=== PATIENT | male | born 1960 | race Caucasian/White ===

== ENCOUNTER → 2017-05-11 11:52 | Outpatient (CLI) | payer MEDICARE, SELFPAY ==
[2017-05-11 11:34] VITALS: BP 136/84; BMI 25.7
--- NOTE | 2017-05-11 11:56 | RAD_ITS ---
STUDY: X-RAY - LEFT FOOT CLINICAL: Male, 56 years old. Heavy board fell on top of foot 3 days ago. TECHNIQUE: 3 view(s) of the foot. COMPARISON: None. FINDINGS: There is a plantar calcaneal spur. Normal talus and tarsal bones. Normal visualized subtalar, talonavicular, calcaneocuboid, tarsal and tarsometatarsal articulations. Normal metatarsi. There is degenerative arthrosis of the metatarsophalangeal joint of the hallux . There is a bipartite tibial sesamoid. Normal interphalangeal joint of the great toe. Normal phalanges of the great toe. Normal second through fifth metatarsophalangeal joints. Normal interphalangeal joints and phalanges of the lesser toes. The soft tissue structures are unremarkable. RAD/Foot min 3 Views IMPRESSION: Arthrosis of the foot. There is no acute fracture or dislocation. Electronically Signed: Nathen Dior DO at 18:19 EST Tel [phone], Service support ,
== END ==
PROVIDERS: Family Provider Family Medicine; PCP Family Medicine; Visit Provider Physician Assistant
DX: S90.32XA Contusion of left foot, initial encounter (principal); W22.8XXA Striking against or struck by other objects, initial encounter; M19.072 Primary osteoarthritis, left ankle and foot
CPT/HCPCS: 73630

== ENCOUNTER → 2020-05-28 16:11 | Outpatient (CLI) | payer MEDICARE, SELFPAY ==
[2017-05-11 11:34] VITALS: BMI 25.7
--- NOTE | 2020-05-28 16:18 | US_ITS ---
STUDY: SCROTUM ULTRASOUND REASON FOR EXAM: Male, 59 years old. Left testicular swelling. TECHNIQUE: Ultrasound evaluation of the scrotum was performed with color Doppler and static lockwood-scale imaging. COMPARISON: None. FINDINGS: RIGHT TESTICLE INTRATESTICULAR: There is a normal size of the right testicle. The right testicle measures 3.8 x 3.1 x 2.4 cm. There is a homogenous echotexture. There is normal arterial and normal venous vascularity. There is no demonstrated right testicular mass or cyst. EXTRATESTICULAR: The epididymis is normal in size. The epididymis head measures 1.2 x 1.1 x 1.2 cm. There is normal vascularity of the epididymis. There is no demonstrated epididymal cystic structure. There is a small hydrocele. There is no demonstrated varicocele. There is no demonstrated extratesticular mass or cyst. LEFT TESTICLE INTRATESTICULAR: There is a normal size of the left testicle. The left testicle measures 3.6 x 2.7 x 2.4 cm. There is a homogenous echotexture. There is normal arterial and normal venous vascularity. There is no demonstrated left testicular mass or cyst. EXTRATESTICULAR: The epididymis is normal in size. The epididymis head measures 0.9 x 1.2 x 1.0 cm. There is normal vascularity of the epididymis. There is no demonstrated epididymal cystic structure. There is a large hydrocele. There is no demonstrated varicocele. There is no demonstrated extratesticular mass or cyst. US/Testicular with Arterial Flow IMPRESSION: Bilateral hydrocele, left larger compared to the right. Otherwise unremarkable testicular ultrasound. Electronically Signed: Yessenia Roldan MD at 1:48 EST , Service support ,
== END ==
PROVIDERS: PCP Family Medicine; Referring Provider Family Medicine; Visit Provider Family Medicine
DX: N50.89 Other specified disorders of the male genital organs (principal)
CPT/HCPCS: 76870; 93976

== ENCOUNTER → 2021-10-25 | Outpatient (CLI) | payer MEDICARE, SELFPAY ==
[2021-10-25 10:38] LABS: ALB/GLOB Ratio 0.9 RATIO (0.9-2.4); AST(SGOT) 23 U/L (15-37); Alanine Aminotransfer ALT/SGPT 27 U/L (16-61); Albumin, Serum 3.7 g/dL (3.2-5.0); Alkaline Phosphatase 97 U/L (45-117); Anion Gap 8 (5-15); BUN 18 mg/dL (7-18); BUN/Creat Ratio 11.6 RATIO (10-20); Calcium,Total 9.4 mg/dL (8.5-10.1); Chloride 107 mmol/L (98-107); Creatinine, Serum 1.55 mg/dL (0.70-1.30); EST Glomerular Filtration Rate 49 mL/min (>60); Est Glom Filt Rate - Afr Amer 59 mL/min (>60); Globulin 3.9 g/dL (2.2-4.2); Glucose 102 mg/dL (74-106); Potassium 4.8 mmol/L (3.5-5.1); Protein, Total 7.6 g/dL (6.4-8.2); Sodium Level 140 mmol/L (136-145)
== END | disposition home or self-care (01) ==
PROVIDERS: PCP Family Medicine; Referring Provider Family Medicine; Visit Provider Family Medicine
DX: Z52.4 Kidney donor (principal); E78.5 Hyperlipidemia, unspecified
CPT/HCPCS: 36415; 80053

== ENCOUNTER → 2021-11-09 | Outpatient (CLI) | payer MEDICARE, SELFPAY ==
--- NOTE | 2021-11-09 17:14 | CT_ITS ---
STUDY: LOW DOSE CT LUNG CANCER SCREENING REASON FOR EXAM: Male, 61 years old. Lung cancer screening -- and gt;30 pk yr hx;former smoker;asymptomatic RADIATION DOSAGE (If Supplied By Facility): CTDIvol = ( 3.02 ) mGy, DLP = ( 103.45 ) mGycm TECHNIQUE: No contrast was administered. Low dose technique was utilized (average mAS-38 and kVp 120). 1.25 mm axial source images with a slice interval of 1.25-mm were reconstructed in lung windows. 2.5 mm axial source images with a slice interval of 2.5-mm were reconstructed in lung windows. 5.0 mm axial source images with a slice interval of 5.0-mm were reconstructed in soft tissue windows. COMPARISON: None. NODULES: There is a 3.9 mm noncalcified nodule in the right temporal as seen on axial image number 1:30 in the coronal image #126. Emphysema: Hyperinflation. Endobronchial lesion: None Aorta: Mild atherosclerotic calcification of the aortic arch. CORONARY ARTERIES: Coronary artery calcification is seen. Heart: Unremarkable Pulmonary artery: Unremarkable Mediastinal nodes: Small mediastinal lymph nodes. Other chest and abdominal findings: CT/Low Dose CT Lung Screening IMPRESSION: Lung-RADS category 2 - Continue annual screening with LDCT in 12 months. IMPORTANT NOTES FOR USE: ACR Lung-RADS Version 1.1 Assessment Categories Release Date: 2018 Category: Coded 0-4 bases on nodule(s) with highest degree of suspicion. Negative screen is defined as categories 1 and 2; a positive screen is defined as categories 3 and 4. Category 3 and 4A nodules that are unchanged on interval CT should be coded as category 2, and individuals returned to screening in 12 months. Category 4X: Category 3 or 4 nodules with additional imaging findings that increase the suspicion of lung cancer, such as spiculation, GGN that doubles in size in 1 year, enlarged lymph notes, etc. Category Modifiers: S (significant finding unrelated to lung cancer) Electronically Signed: Jeyson Santiago MD at 9:14 EDT ,
== END | disposition home or self-care (01) ==
LOC: CT 17:05
PROVIDERS: PCP Family Medicine; Referring Provider Nurse Practitioner Family; Visit Provider Nurse Practitioner Family
DX: Z87.891 Personal history of nicotine dependence (principal); Z12.2 Encounter for screening for malignant neoplasm of respiratory organs
CPT/HCPCS: 71271

== ENCOUNTER → 2022-11-02 | Outpatient (CLI) | payer MEDICARE, SELFPAY ==
[2022-11-02 12:24] LABS: Absolute Neutrophil Count 5.6 X10^3/uL (2.0-7.7); Basophil# 0.05 X10^3/uL; Basophil% 0.7 % (0-1); Eosinophils% 2.7 % (0-5); Hematocrit 48.4 % (40-54); Hemoglobin 15.9 g/dL (13.0-16.5); Lymphocyte % 14.8 % (19-41); Mean Corp Hgb Conc 32.9 g/dL (32-36); Mean Corpuscular Hgb 30.9 pg (27.0-32.0); Mean Platelet Vol. 12.1 fl (6.2-12.0); Monocyte# 0.51 X10^3/uL; Monocyte% 6.8 % (0-10); NRBC Flagged by Analyzer 0 % (0-5); Neutrophil # 5.57 X10^3/uL (2.7-7.7); Neutrophil % 74.7 % (47-70); Platelet Count 180 K/mm3 (150-450); RBC Distribution Width CV 12.6 % (11.6-14.6); RBC Distribution Width SD 43.8 fl (35.1-43.9); Red Blood Count 5.15 M/mm3 (4.6-6.2); White Blood Count 7.5 K/mm3 (4.4-11.0)
[2022-11-02 13:23] LABS: AST(SGOT) 22 U/L (15-37); Alanine Aminotransfer ALT/SGPT 26 U/L (16-61); Albumin, Serum 3.7 g/dL (3.2-5.0); Alkaline Phosphatase 85 U/L (45-117); Anion Gap 5 (5-15); BUN 17 mg/dL (7-18); BUN/Creat Ratio 12.8 RATIO (10-20); Calcium,Total 9.1 mg/dL (8.5-10.1); Chloride 108 mmol/L (98-107); Creatinine, Serum 1.33 mg/dL (0.70-1.30); EST Glomerular Filtration Rate 58 mL/min (>60); Est Glom Filt Rate - Afr Amer 70 mL/min (>60); Globulin 3.7 g/dL (2.2-4.2); Glucose 124 mg/dL (74-106); Potassium 4.6 mmol/L (3.5-5.1); Protein, Total 7.4 g/dL (6.4-8.2); Sodium Level 139 mmol/L (136-145)
== END | disposition home or self-care (01) ==
PROVIDERS: PCP Nurse Practitioner Family; Referring Provider Nurse Practitioner Family; Visit Provider Nurse Practitioner Family
DX: Z00.01 Encounter for general adult medical examination with abnormal findings (principal); K57.92 Diverticulitis of intestine, part unspecified, without perforation or abscess without bleeding; Z52.4 Kidney donor
CPT/HCPCS: 36415; 80053; 85025

== ENCOUNTER → 2022-11-11 | Outpatient (CLI) | payer MEDICARE, SELFPAY ==
--- NOTE | 2022-11-11 06:56 | CT_ITS ---
EXAM: CT CHEST, LUNG CANCER SCREENING WITHOUT INTRAVENOUS CONTRAST CLINICAL INDICATION: PERSONAL HX OF NICOTINE DEPENDENCE TECHNIQUE: Helically acquired images were obtained of the chest without intravenous contrast using low dose (LDCT) lung cancer screening protocol. This CT exam was performed using one or more of the following dose reduction techniques: automated exposure control, adjustment of the mA and/or kV according to patient size, and/or use of iterative reconstruction technique. COMPARISON: No relevant prior studies available. FINDINGS: LUNGS AND PLEURAL SPACES: Stable partially calcified 4 mm nodule within the anterior segment of the right upper lobe. Stable pleural-based 3 mm nodule adjacent to the minor fissure. No evidence of a lung mass or suspicious pulmonary nodule. No pneumothorax. HEART: Normal. No pericardial effusion. Normal heart size. Moderate coronary artery calcification. MEDIASTINUM: Normal. No mediastinal or hilar adenopathy. Esophagus is unremarkable. No hiatal hernia. THYROID: Normal. No thyroid nodules or calcification. BONES/JOINTS: No suspicious lytic or blastic abnormality. VASCULATURE: See above. LYMPH NODES: Normal. No enlarged lymph nodes. CT/Low Dose CT Lung Screening IMPRESSION: No evidence of a lung mass or suspicious pulmonary nodule. Lung-RADS score: 1 - Negative. Recommend continued annual screening with a low-dose CT (LDCT) in 12 months. Electronically Signed: Darius Cannon MD at 7:46 EDT ,
== END | disposition home or self-care (01) ==
PROVIDERS: PCP Nurse Practitioner Family; Referring Provider Nurse Practitioner Family; Visit Provider Nurse Practitioner Family
DX: Z12.2 Encounter for screening for malignant neoplasm of respiratory organs (principal); Z87.891 Personal history of nicotine dependence
CPT/HCPCS: 71271

== ENCOUNTER → 2024-01-09 | Outpatient (CLI) | payer MEDICARE, SELFPAY ==
--- NOTE | 2024-01-09 12:30 | CT_ITS ---
STUDY: LOW DOSE CT LUNG CANCER SCREENING REASON FOR EXAM: Male, 63 years old. LUNG CANCER SCREENING and gt;20 PK HX;FORMER SMOKER;ASYMPTOMATIC RADIATION DOSAGE (If Supplied By Facility): CTDIvol = ( 3.02 ) mGy, DLP = ( 97.04 ) mGycm TECHNIQUE: No contrast was administered. Low dose technique was utilized (average mAS-38 and kVp 120). 1.25 mm axial source images with a slice interval of 1.25-mm were reconstructed in lung windows. 2.5 mm axial source images with a slice interval of 2.5-mm were reconstructed in lung windows. 5.0 mm axial source images with a slice interval of 5.0-mm were reconstructed in soft tissue windows. COMPARISON: Comparison is made with prior study November 11, 2022. NODULES: Stable 4.2 mm partially calcified nodule in the anterior medial aspect of the right upper lobe as seen on axial image #107. Stable pleural-based 3 mm nodule adjacent to the minor fissure. Emphysema: Mild biapical scarring more prominent on the right side. Endobronchial lesion: None Aorta: Mild degree of atherosclerotic calcification of the aortic arch. CORONARY ARTERIES: Coronary artery calcification is seen. Heart: Unremarkable Pulmonary artery: Remarkable Mediastinal nodes: Unremarkable Other chest and abdominal findings: CT/Low Dose CT Lung Screening IMPRESSION: Lung-RADS category 2 - Continue annual screening with LDCT in 12 months. IMPORTANT NOTES FOR USE: ACR Lung-RADS Version 1.1 Assessment Categories Release Date: 2018 Category: Coded 0-4 bases on nodule(s) with highest degree of suspicion. Negative screen is defined as categories 1 and 2; a positive screen is defined as categories 3 and 4. Category 3 and 4A nodules that are unchanged on interval CT should be coded as category 2, and individuals returned to screening in 12 months. Category 4X: Category 3 or 4 nodules with additional imaging findings that increase the suspicion of lung cancer, such as spiculation, GGN that doubles in size in 1 year, enlarged lymph notes, etc. Category Modifiers: S (significant finding unrelated to lung cancer) Electronically Signed: Jeyson Santiago MD at 13:15 EDT ,
[2024-01-09 13:34] LABS: Absolute Lymphocyte Count 1.41 X10^3/uL (0.83-4.51); Absolute Neutrophil Count 4.4 X10^3/uL (2.0-7.7); Basophil# 0.11 X10^3/uL; Basophil% 1.6 % (0-1); Eosinophil# 0.32 X10^3/uL; Eosinophils% 4.7 % (0-5); Hematocrit 50.6 % (40-54); Hemoglobin 16.4 g/dL (13.0-16.5); Lymphocyte # 1.41 X10^3/ul (0.83-4.51); Lymphocyte % 20.8 % (19-41); Mean Corp Hgb Conc 32.4 g/dL (32-36); Mean Corpuscular Hgb 29.9 pg (27.0-32.0); Mean Corpuscular Volume 92.3 fL (80-94); Mean Platelet Vol. 11.9 fl (6.2-12.0); Monocyte# 0.56 X10^3/uL; Monocyte% 8.3 % (0-10); NRBC Flagged by Analyzer 0 % (0-5); Neutrophil # 4.35 X10^3/uL (2.7-7.7); Neutrophil % 64.3 % (47-70); Platelet Count 173 K/mm3 (150-450); Red Blood Count 5.48 M/mm3 (4.6-6.2); White Blood Count 6.8 K/mm3 (4.4-11.0)
[2024-01-09 14:02] LABS: AST(SGOT) 23 U/L (15-37); Alanine Aminotransfer ALT/SGPT 26 U/L (16-61); Albumin, Serum 3.7 g/dL (3.2-5.0); Alkaline Phosphatase 92 U/L (45-117); Anion Gap 6 (5-15); BUN 12 mg/dL (7-18); BUN/Creat Ratio 8.6 RATIO (10-20); Calcium,Total 9.3 mg/dL (8.5-10.1); Chloride 109 mmol/L (98-107); Cholesterol 232 mg/dL (200); Creatinine, Serum 1.39 mg/dL (0.70-1.30); EST Glomerular Filtration Rate 55 mL/min (>60); Est Glom Filt Rate - Afr Amer 67 mL/min (>60); Globulin 3.6 g/dL (2.2-4.2); Glucose 98 mg/dL (74-106); High Density Lipoprotein 34 mg/dL; PSA,Total - Annual Screen 0.78 ng/mL (0.00-4.00); Potassium 4.6 mmol/L (3.5-5.1); Protein, Total 7.3 g/dL (6.4-8.2); Sodium Level 140 mmol/L (136-145); Triglycerides 144 mg/dL; Very Low Density Lipoprotein 29 mg/dL (5-40)
== END | disposition home or self-care (01) ==
PROVIDERS: PCP Nurse Practitioner Family; Referring Provider Nurse Practitioner Family; Visit Provider Nurse Practitioner Family
DX: Z12.2 Encounter for screening for malignant neoplasm of respiratory organs (principal); Z12.5 Encounter for screening for malignant neoplasm of prostate; I10 Essential (primary) hypertension; E78.5 Hyperlipidemia, unspecified; Z87.891 Personal history of nicotine dependence
CPT/HCPCS: 36415; 71271; 80053; 80061; 84153; 85025; G0103

== ENCOUNTER → 2025-03-18 | Outpatient (CLI) | payer MEDICARE, SELFPAY ==
--- NOTE | 2025-03-18 12:42 | CT_ITS ---
PROCEDURE: LOW DOSE CT LUNG SCREENING 03/18/2025 REASON FOR EXAM: LUNG CANCER SCREENING Routine screening, 1 pack per day smoker times 40 years TECHNIQUE: Procedure Code: [id number] Modality: CT Procedure: LOW DOSE CT LUNG SCREENING Coronal and Sagittal reconstruction series were provided. One or more dose reduction techniques were used (e.g., Automated exposure control, adjustment of the mA and/or kV according to patient size, use of iterative reconstruction technique). REFERENCE LINK: [employer] Lung-RADS RADIATION DOSE SUMMARY: CTDlvol: 3.02 mGy DLP: 107.97 mGycm COMPARISON: 01/09/2024 FINDINGS: Lung windows show lungs to be normally expanded. Chronic interstitial changes noted in both lung green with nonspecific pleural thickening. Stable calcified granulomata. No organized infiltrate or effusion. No suspicious noncalcified mass or nodule. Limited soft tissue windows show a normal-appearing thyroid gland. No suspicious axillary mediastinal or perihilar adenopathy. The thoracic aorta tapers normally. There are calcified coronary vessels. Limited cuts of the upper abdomen do not show a suspicious abnormality. Bony structures show degenerative change CT/Low Dose CT Lung Screening IMPRESSION: No acute pulmonary process, no suspicious noncalcified mass or nodule. No inte rval change Coronary artery calcification (CAC) is is present Lung-RADS Category: 1 NEGATIVE. RECOMMEND 12-MONTH SCREENING LDCT. Other Significant Findings: Reading Location: [id number]
== END | disposition home or self-care (01) ==
LOC: CT 12:42
PROVIDERS: PCP Nurse Practitioner Family; Referring Provider Nurse Practitioner Family; Visit Provider Nurse Practitioner Family
DX: Z12.2 Encounter for screening for malignant neoplasm of respiratory organs (principal); Z87.891 Personal history of nicotine dependence
CPT/HCPCS: 71271

== ENCOUNTER 2025-03-26 16:59 | Emergency (ER) | payer MEDICARE, SELFPAY ==
[2025-03-26 16:59] VITALS: BP 144/104; PULSE 85; RESP 16; TEMP 37.2; O2SAT 99; BMI 26.1
[2025-03-26 17:03] VITALS: BP 150/90; PULSE 82; RESP 18; TEMP 37.7; O2SAT 98
--- OUTSIDE RECORDS SUMMARY | 2025-03-26 17:38 | XMS RPT_ITS | CCD ---
Author Organization [place] [facility] Care Team Providers Care Youth Probation Officer Name Role Phone JOSH ZAVALA Unavailable Unavailable EVER ANGEL Unavailable Unavailable JOSH ZAVALA Unavailable Unavailable JOSH ZAVALA Unavailable Unavailable ZELALEM PAZ Unavailable Unavailable Chloé Cope Unavailable Unavailable Unknown, Referring Provider Unavailable Unav ailable Required, No Pcp Unavailable Unavailable Krys Khalil Unavailable UNKNOWN, PCP Primary Care Unavailable Krys Khalil Attending Lucero Juarez NP Referring Unavailable Kim ELL TUTOR, Lucero Attending Unavailable Chaparrita Tanner Primary Care Unavailable Chaparrita Tanner Primary Care Unavailable Kim ELL TUTOR, Lucero Attending Unavailable Chaparrita Tanner Referring Unavailable Allergies Allergy Classification Reported Allergen(s) Allergy Type Date of Onset Reaction(s) Facility (1 source) codeine; Translations: [CODEINE] Drug Allergy 03-19-2011 [facility] Repository (1 source) Influenza Virus Vaccines Drug allergy (disorder) 01-28-2025 [facility] Repository (1 source) Tsffdur-Ytg-Ief Reductase Inhibitor Drug allergy (disorder) 01-28-2025 [facility] Repository Medications Current Medications Medication Drug Class(es) Dates Sig (Normalized) Sig (Original) acetaminophen 325 mg oral tablet (1 source) Start: 06-07-2017 take 2 tablets by mouth every four hours as needed acetaminophen 325 mg oral tablet ; 2 tab(s) orally every 4 hours, As Needed for mild pain (1-3) Quantity: 0 Refills: 0 Ordered: 07-Jun-2017 Rosio Carolina Start: 07-Jun-2017 Generic Substitution Allowed ondansetron 4 mg oral tablet (1 source) Serotonin-3 Receptor Antagonist Start: 05-19-2022 take 1 tablet by mouth every six hours ondansetron 4 mg oral tablet ; 1 tab(s) orally every 6 hours Quantity: 30 Refills: 0 Ordered: 19-May-2022 Daniele Becker Start: 19-May-2022 Generic Substitution Allowed Completed/Discontinued Medications Medication Drug Class(es) Dates Sig (Normalized) Sig (Original) docusate sodium 100 mg oral capsule (1 source) Start: 06-08-2017 End: 06-14-2017 take 8 capsules by mouth twice daily docusate sodium 100 mg oral capsule ; 1 cap(s) orally 2 times a day while taking narcotics (dilaudid)Hold for loose stool Quantity: 14 Refills: 0 Ordered: 08-Jun-2017 Beltran Lazo Start: 08-Jun-2017 End: 14-Jun-2017 Generic Substitution Allowed HYDROmorphone hydrochloride 2 mg oral tablet (1 source) Opioid Agonist Start: 06-08-2017 End: 06-14-2017 take 1 tablet by mouth every four hours as needed HYDROmorphone 2 mg oral tablet ; 1 tab(s) orally every 4 hours, As needed, Pain - Mod (4-6) for post-operative pain (G89.18) Quantity: 42 Refills: 0 Ordered: 08-Jun-2017 Beltran Lazo Start: 08-Jun-2017 End: 14-Jun-2017 Generic Substitution Allowed Scopolamine (1 source) Anticholinergic Start: 06-08-2017 End: 06-10-2017 Scopolamine 1.5 mg TransDermal ; 1 patch transdermal every 72 hours Quantity: 3 Refills: 0 Ordered: 08-Jun-2017 Beltran Lazo Start: 08-Jun-2017 End: 10-Jun-2017 Dispense As Written sennosides, jail 8.6 mg oral tablet (1 source) Start: 06-08-2017 End: 06-14-2017 take 8 tablets by mouth twice daily as needed for constipation senna 8.6 mg oral tablet ; 1 tab(s) orally 2 times a day, As needed, Constipation while taking narcotics (dilaudid)Hold for loose stool Quantity: 14 Refills: 0 Ordered: 08-Jun-2017 Beltran Lazo Start: 08-Jun-2017 End: 14-Jun-2017 Generic Substitution Allowed Problems Active Problems Problem Classification Problem Date Documented Date Episodic/Chronic Conditions associated with dizziness or vertigo (1 source) Dizziness and giddiness; Translations: [Dizziness and giddiness] Onset: 3 Episodic Fever of unknown origin (4 sources) Fever; Translations: [Fever, unspecified] Onset: 3 05-19-2022 Episodic Nausea and vomiting (2 sources) Nausea with vomiting, unspecified; Translations: [Nausea with vomiting, unspecified] Onset: 3 Episodic Other injuries and conditions due to external causes (1 source) Open wound; Translations: [Wound drainage] Episodic Residual codes; unclassified (1 source) Kidney donor; Translations: [Donor of kidney for transplant] Episodic Residual codes; unclassified (2 sources) Pain, unspecified; Translations: [Pain, unspecified] Onset: 3 Episodic Residual codes; unclassified (1 source) Acquired absence of kidney; Translations: [Acquired absence of kidney] Onset: 3 Episodic Screening and history of mental health and substance abuse codes (3 sources) Tobacco use and exposure - finding; Translations: [Personal history of nicotine dependence] Onset: 5 11-09-2021 Episodic Superficial injury; contusion (3 sources) Contusion of foot; Translations: [Contusion of left foot, initial encounter] 05-11-2017 Episodic Unclassified (4 sources) Encounter for screening for malignant neoplasm of colon; Translations: [Interferon gamma assay positive] Onset: 7 11-09-2021 Episodic Unclassified (3 sources) Closed fracture dislocation of single metatarsophalangeal joint; Translations: [Closed fracture dislocation of single metatarsophalangeal joint of left foot with rou] 05-11-2017 Viral infection (1 source) Disease caused by 2019-nCoV; Translations: [Other specified viral infection] 05-19-2022 Episodic Viral infection (4 sources) Disease caused by 2019-nCoV; Translations: [COVID-19] Onset: 3 05-18-2022 Comment on above: COVID Past or Other Problems Problem Classification Problem Date Documented Da te Episodic/Chronic Other and unspecified benign neoplasm (1 source) Personal history of colonic polyps; Translations: [Personal history of colonic polyps] Onset: 12-20-2016 Episodic NEGATED: Highlighted row has not occurred!Residual codes; unclassified (2 sources) Disease Episodic Results Test Name Value Interpretation Reference Range Facility Absolute lymphocyte countOrd ered By: Chaparrita Tanner on 11-02-2022 Lymphocytes Auto (Unsp spec) [#/Vol] 1.10 10*3/uL 0.83-4.51 [facility] Basophil percentageOrdered B y: Chaparrita Tnaner on 11-02-2022 Basophils/100 WBC (Bld) 0.7 % 0-1 [facility] Bilirubin [Mass/Vol] 0.40 mg/dL 0.20-1.00 [facility] Comment on above: For patients on eltr ombopag therapy, use of Dimension [place] TBIL is not recommended. Chloride [Moles/Vol] 108 mmol/L 98-107 [facility] Eosinophils/100 WBC (Bld) 2.7 % 0-5 [facility] Glucose [Mass/Vol] 124 mg/dL 74-106 [facility] Comment on above: Fasting Glucose resu lt from 100 to 125 mg/dL suggests IMPAIRED HOMEOSTASIS per A.D.A. criteria. Neutrophils (Bld) [#/Vol] 5.6 10*3/uL 2.0-7.7 [facility] Neutrophils/100 WBC (Bld) 74.7 % 47-70 [facility] Potassium [Moles/Vol] 4.6 mmol/L 3.5-5.1 [facility] Protein [Mass/Vol] 7.4 g/dL 6.4-8.2 [facility] Sodium [Moles/Vol] 139 mmol/L 136-145 [facility] WBC (Bld) [#/Vol] 7.5 10*3/uL 4.4-11.0 [facility] Blood erythrocytes count (nu mber/volume)Ordered By: Chaparrita Tanner on 11-02-2022 RBC (Bld) [#/Vol] 5.15 10*6/uL 4.6-6.2 [facility] Blood hemoglobin measurement (mass/volume)Ordered By: Chaparrita Tanner on 11-02-2022 Hemoglobin (Bld) [Mass/Vol] 15.9 g/dL 13.0-16.5 [facility] Blood lymphocytes/100 leukoc ytesOrdered By: Chaparritadeysi Tanner on 11-02-2022 Lymphocytes/100 WBC (Bld) 14.8 % 19-41 [facility] Blood monocytes/100 leukocyt esOrdered By: Chaparritadeysi Tanner on 11-02-2022 Monocytes/100 WBC (Bld) 6.8 % 0-10 [facility] Blood platelet mean volumeOr dered By: Chaparrita Tanner on 11-02-2022 Platelet mean volume (Bld) [Entitic vol] 12.1 fL 6.2-12.0 [facility] Determination of erythrocyte mean corpuscular volume (MCV)Ordered By: Chaparritadeysi Tanner on 11-02-2022 MCV (RBC) [Entitic vol] 94.0 fL 80-94 [facility] Hematocrit Auto (Bld) [Volum e fraction]Ordered By: Chaparritadeysi Tanner on 11-02-2022 Hematocrit (Bld) [Volume fraction] 48.4 % 40-54 [facility] Laboratory - Chemistry and C hemistry - challengeOrdered By: Ocala Ciro on 11-02-2022 ALP [Catalytic activity/Vol] 85 U/L 45-117 [facility] ALT [Catalytic activity/Vol] 26 U/L 16-61 [facility] CO2 [Moles/Vol] 26.0 mmol/L 21.0-32.0 [facility] Globulin (S) [Mass/Vol] 3.7 g/dL 2.2-4.2 [facility] Urea nitrogen/Creatinine [Mass ratio] 12.8 mg/mg 10-20 [facility] Laboratory - Hematology and Cell countsOrdered By: Ocala Ciro on 11-02-2022 Erythrocyte distribution width (RBC) [Entitic vol] 43.8 fL 35.1-43.9 [facility] Erythrocyte distribution width (RBC) [Ratio] 12.6 % 11.6-14.6 [facility] Immature granulocytes/100 WBC (Bld) 0.300 % 0.0-0.9 [facility] Comment on above: IG% - Immature Granu locytes (promyelocytes, myelocytes and metamyelocytes) > 1% indicates that a LEFT SHIFT is Present. MCH (RBC) [Entitic mass] 30.9 pg 27.0-32.0 [facility] Nucleated RBC/100 WBC (Bld) [Ratio] 0 % 0-5 [facility] MCHC Auto (RBC) [Mass/Vol]Or dered By: Chaparrita Tanner on 11-02-2022 MCHC (RBC) [Mass/Vol] 32.9 g/dL 32-36 [facility] No Panel InformationOrdered By: Chaparrita Tanner on 11-02-2022 Estimated GFR (MDRD) Amer 70 mL/min >60 [facility] Comment on above: GFR Calc Estimated GFR (MDRD) Non-Af Amer 58 mL/min >60 [facility] Comment on above: Non- GFR Calc Platelets bldOrdered By: Juliet Tanner on 11-02-2022 Platelets (Bld) [#/Vol] 180 10*3/uL 150-450 [facility] Serum or plasma albumin kevin urement (mass/volume)Ordered By: Chaparrita Tanner on 11-02-2022 Albumin [Mass/Vol] 3.7 g/dL 3.2-5.0 [facility] Serum or plasma albumin/glob ulin mass ratioOrdered By: Chaparrita Tanner on 11-02-2022 Albumin/Globulin [Mass ratio] 1.0 {ratio} 0.9-2.4 [facility] Serum or plasma calcium kevin urement (mass/volume)Ordered By: Chaparrita Tanner on 11-02-2022 Calcium [Mass/Vol] 9.1 mg/dL 8.5-10.1 [facility] Serum or plasma creatinine m easurement (mass/volume)Ordered By: Chaparrita Tanner on 11-02-2022 Creatinine [Mass/Vol] 1.33 mg/dL 0.70-1.30 [facility] Comment on above: The validity of the calculated GFR & GFRAA in patients over 70 years has not been determined. Clinical correlation is essential. Serum or plasma urea nitroge n measurement (mass/volume)Ordered By: Chaparrita Tanner on 11-02-2022 Urea nitrogen [Mass/Vol] 17 mg/dL 7-18 [facility] Thin prep Papanicolaou smear with manual screeningOrdered By: Chaparrita Tanner on 11-02-2022 Thin prep Papanicolaou smear with manual screening 22 U/L 15-37 [facility] Thin prep Papanicolaou smear with manual screening 5 5-15 [facility] INFLUENZA A/B, COVID 2019 PC R,SYMPTOMATICon 05-19-2022 INFLUENZA A, PCR Canceled Normal [facility] Comment on above: Order Comment: TEST INFLUENZA A/B, COVID 2019 PCR,SYMPTOMATIC WAS CANCELLED, 05/19/2022 01:42 Result Comment: Resp iratory virus testing is performed routinely by PCR for Influenza A/B and RSV. Not Detected results do not preclude Influenza A/B or RSV infections since the adequacy of sample collection or low viral burden may impact the clinical sensitivity of this test method. Performed By: #### C OINP #### [facility] [address] [place] [address] INFLUENZA B, PCR Canceled Normal [facility] Comment on above: Order Comment: TEST INFLUENZA A/B, COVID 2019 PCR,SYMPTOMATIC WAS CANCELLED, 05/19/2022 01:42 Result Comment: Resp iratory virus testing is performed routinely by PCR for Influenza A/B and RSV. Not Detected results do not preclude Influenza A/B or RSV infections since the adequacy of sample collection or low viral burden may impact the clinical sensitivity of this test method. Performed By: #### C OINP #### [facility] [address] [place] [address] SARS-CoV-2 (COVID-19) RNA PEPPER+probe Ql (Unsp spec) Canceled Normal [facility] Comment on above: Order Comment: TEST INFLUENZA A/B, COVID 2019 PCR,SYMPTOMATIC WAS CANCELLED, 05/19/2022 01:42 Result Comment: . This test has received FDA Emergency Use Authorization (EUA) and has been verified by [facility] ([facility]). This test is only authorized for the duration of time that circumstances exist to justify the authorization of the emergency use of in vitro diagnostic tests for the detection of SARS-CoV-2 virus and/or diagnosis of COVID-19 infection under section 564(b)(1) of the Act, 21 U.S.C. 360bbb-3(b)(1), unless the authorization is terminated or revoked sooner. [facility] is certified under CLIA-88 as qualified to perform high complexity testing. Testing is performed in the [facility] located at [address] [place] [address]. SARS-CoV-2/Flu/RSV Multiplex Test: Fact sheet for providers: https://www.fda.gov/media/399564/download Fact sheet for patients: https://www.fda.gov/media/449144/download Performed By: #### C OINP #### [facility] [id number] [place] [address]. [place] [address] Lab Specimen Source Nasal, Nasopharyngeal Normal [facility] Comment on above: Order Comment: TEST INFLUENZA A/B, COVID 2019 PCR,SYMPTOMATIC WAS CANCELLED, 05/19/2022 01:42 Performed By: #### C OINP #### [address] [place] [address] Provider Note - ED v3on 05-04 Provider Note - ED v3 Provider Note: Chart Review: ED NOTES ED NOTES: HPI: Patient is a 61-year-old male with past medical history of donor nephrectomy who presents today due to nausea and vomiting, body aches, fever. Patient states that symptoms began last night and he had a home COVID test that has been positive. [facility] COVID test that tested positive. Patient been having difficulty tolerating p.o. intake at this time but he has not been taking any medications for his symptoms. Patient does feel dehydrated. Patient denies chest pain, shortness of breath, cough, abdominal pain, urinary symptoms, change in bowel movements, focal neurologic deficits. Past Medical History: Denies current past medical history Past Surgical History: Nephrectomy Allergies: Per EMR Family History: denies family history pertinent to presenting problem Social History: Denies tobacco, alcohol, licit drug use ROS: All systems were reviewed and negative except as mentioned above in HPI Physical Exam: Appearance: Alert, oriented , cooperative, in no acute distress. Well nourished & well hydrated. Skin: Intact, dry skin, no lesions, rash, petechiae or purpura. Eyes: PERRLA, EOMI, Eyelids without lesions. No scleral icterus. ENT: Hearing grossly intact, mucus membranes moderately dry Neck: Supple, Trachea at midline. Pulmonary: Clear bilaterally with good chest wall excursion. No rales, rhonchi or wheezing. No accessory muscle use or stridor. Cardiac: RRR, Normal S1, S2 without murmur, rub, gallop or extrasystole. Abdomen: Soft, nontender, active bowel sounds. No rebound or guarding. No CVA tenderness. Musculoskeletal: Full range of motion. no pain, edema, or deformity. Pulses full and equal Neurological: alert and oriented, no focal findings identified. Psychiatric: Appropriate mood and affect. Labs, imaging and meds ordered: please see orders EKG: Normal sinus rhythm ventricular rate around 97. Normal axis. No ST elevation depression. T wave inversion in lead III. On comparison EKG from January 31, 2017 this T wave inversion is consistent. Medical decision-making: Patient is a 61-year-old male with past medical history of donor nephrectomy who presents today due to nausea and vomiting, body aches, fever. Initial evaluation patient is febrile but otherwise hemodynamically stable and well-appearing. He is slightly dehydrated so I did order 1 L of LR. I also ordered Toradol, Tylenol, Zofran for symptomatic relief and fever control. Basic labs initiated all of which were unremarkable including no ESTELLA. EKG is at baseline and patient is otherwise well-appearing with no focal signs. On reevaluation after medications patient feels significantly improved. He is tolerating oral intake and drank 2 Gatorade's in front of me. Now that he feels better he does feel safe managing this at home. I do believe this is most likely from his COVID infection. I did discuss Paxlovid with him that he is hesitant to take it and already has a prescription. At this time he will hold off. Safe for discharge at this point with return precautions. Pt seen and discussed with Dr. Helen Becker PGY-3 Emergency Medicine HISTORY OF PRESENTING ILLNESS SUPRIYA is a 61 year old Male and was seen by me at 18-May-2022 23:24 for a chief complaint of multiple medical complaints (COVID+) . Other complaints include: SUPRIYA GTZ is a 61y old with no reported PMHx is presenting to [facility] ED s/p testing positive for COVID with an at home COVID test last night. Patient then went to [facility] to confirm at home test, which showed positive again. He endorses dizziness, nausea and not being able to tolerate PO without emesis. Denies any bloody stools. Denies any chest pain. NKDA(1). Triage Information: Most recent Vital Sign Value Date Temp (F): 102 05-18-2022 19:36 Temp (C): 38.9 05-18-2022 19:36 Heart Rate (beats/min): 99 05-18-2022 19:36 Respirations (breaths/min): 18 05-18-2022 19:36 SpO2 (%): 96 05-18-2022 19:36 BP Systolic (mm Hg): 144 05-18-2022 19:36 BP Diastolic (mm Hg): 87 05-18-2022 19:36 PAST MEDICAL HISTORY ALLERGIES/INTOLERANCES: No Known Allergies HEALTH HISTORY: No documented data. OUTPATIENT MEDICATIONS: Home Medications Review Status for Reconciliation: Not Done Med Status: Patient Currently Takes Medications Drug Name: acetaminophen 325 mg oral tablet Instructions: 2 tab(s) orally every 4 hours, As Needed for mild pain (1-3) Drug Name: Scopolamine 1.5 mg TransDermal Instructions: 1 patch transdermal every 72 hours Drug Name: senna 8.6 mg oral tablet Instructions: 1 tab(s) orally 2 times a day, As needed, Constipation while taking narcotics (dilaudid) Hold for loose stool Drug Name: docusate sodium 100 mg oral capsule Instructions: 1 cap(s) orally 2 times a day while taking narcotics (dilaudid) Hold for loose stool Wraren (more content not included)... Normal [facility] URINALYSISon 05-19-2022 Appearance (U) Canceled Normal [facility] Comment on above: Order Comment: TEST URINALYSIS WAS CANCELLED, 05/19/2022 01:45 Performed By: #### U A #### [facility] [address] [place] [address] ASCORBIC ACID Canceled Normal [facility] Comment on above: Order Comment: TEST URINALYSIS WAS CANCELLED, 05/19/2022 01:45 Result Comment: Conc entrations > = 20 mg/dL of ascorbic acid can be expected to cause strong interference in the reactions testing for glucose, nitrite and blood. It is recommended to discontinue Vitamin C administration and retest in 10 hours. Performed By: #### U A #### [facility] [address] [place] [address] Bilirubin Ql (U) Canceled Normal [facility] Comment on above: Order Comment: TEST URINALYSIS WAS CANCELLED, 05/19/2022 01:45 Performed By: #### U A #### [facility] [address] [place] [address] Color (U) Canceled Normal [facility] Comment on above: Order Comment: TEST URINALYSIS WAS CANCELLED, 05/19/2022 01:45 Performed By: #### U A #### [facility] [address] [place] [address] Glucose Ql (U) Canceled Normal [facility] Comment on above: Order Comment: TEST URINALYSIS WAS CANCELLED, 05/19/2022 01:45 Performed By: #### U A #### [facility] [address] [place] [address] Hemoglobin Ql (U) Canceled Normal [facility] Comment on above: Order Comment: TEST URINALYSIS WAS CANCELLED, 05/19/2022 01:45 Performed By: #### U A #### [facility] [address] [place] [address] Ketones Ql (U) Canceled Normal [facility] Comment on above: Order Comment: TEST URINALYSIS WAS CANCELLED, 05/19/2022 01:45 Performed By: #### U A #### [facility] [address] [place] [address] Leukocyte esterase Test strip Ql (U) Canceled Normal [facility] Comment on above: Order Comment: TEST URINALYSIS WAS CANCELLED, 05/19/2022 01:45 Performed By: #### U A #### [facility] [address] [place] [address] Nitrite Ql (U) Canceled Normal [facility] Comment on above: Order Comment: TEST URINALYSIS WAS CANCELLED, 05/19/2022 01:45 Performed By: #### U A #### [facility] [address] [place] [address] pH Canceled Normal [facility] Comment on above: Order Comment: TEST URINALYSIS WAS CANCELLED, 05/19/2022 01:45 Performed By: #### U A #### [facility] [address] [place] [address] Protein Ql (U) Canceled Normal [facility] Comment on above: Order Comment: TEST URINALYSIS WAS CANCELLED, 05/19/2022 01:45 Performed By: #### U A #### [facility] [address] [place] [address] Specific gravity (U) [Rel density] Canceled Normal [facility] Comment on above: Order Comment: TEST URINALYSIS WAS CANCELLED, 05/19/2022 01:45 Performed By: #### U A #### [facility] [address] [place] [address] UROBILINOGEN Canceled Normal [facility] Comment on above: Order Comment: TEST URINALYSIS WAS CANCELLED, 05/19/2022 01:45 Performed By: #### U A #### [facility] [address] [place] [address] CBC AND DIFFERENTIALon 05-18 % AUTOMATED IMMATURE GRAN 0.2 % Normal 0.0 - 0.9 [facility] Comment on above: Result Comment: Patito ture Granulocyte Count (IG) includes promyelocytes, myelocytes and metamyelocytes but does not include bands. Percent differential counts (%) should be interpreted in the context of the absolute cell counts (cells/L). Performed By: #### C BCDF #### [facility] [address] [place] [address] Basophils (Bld) [#/Vol] 0.03 10*3/uL Normal 0.00 - 0.10 [facility] Comment on above: Performed By: #### C BCDF #### [facility] [address] [place] [address] Basophils/100 WBC (Bld) 0.5 % Normal 0.0 - 2.0 [facility] Comment on above: Performed By: #### C BCDF #### [facility] [address] [place] [address] Eosinophils (Bld) [#/Vol] 0.03 10*3/uL Normal 0.00 - 0.70 [facility] Comment on above: Performed By: #### C BCDF #### [facility] [address] [place] [address] Eosinophils/100 WBC (Bld) 0.5 % Normal 0.0 - 6.0 [facility] Comment on above: Performed By: #### C BCDF #### [facility] [address] [place] [address] Erythrocyte distribution width (RBC) [Ratio] 12.5 % Normal 11.5 - 14.5 [facility] Comment on above: Performed By: #### C BCDF #### [facility] [address] [place] [address] Hematocrit (Bld) [Volume fraction] 44.2 % Normal 41.0 - 52.0 [facility] Comment on above: Performed By: #### C BCDF #### [facility] [address] [place] [address] Hemoglobin (Bld) [Mass/Vol] 15.0 g/dL Normal 13.5 - 17.5 [facility] Comment on above: Performed By: #### C BCDF #### [facility] [address] [place] [address] Lymphocytes (Bld) [#/Vol] 0.26 10*3/uL Low 1.20 - 4.80 [facility] Comment on above: Performed By: #### C BCDF #### [facility] [address] [place] [address] Lymphocytes/100 WBC (Bld) 4.3 % Normal 13.0 - 44.0 [facility] Comment on above: Performed By: #### C BCDF #### [facility] [address] [place] [address] MCHC (RBC) [Mass/Vol] 33.9 g/dL Normal 32.0 - 36.0 [facility] Comment on above: Performed By: #### C BCDF #### [facility] [address] [place] [address] MCV (RBC) [Entitic vol] 89 fL Normal 80 - 100 [facility] Comment on above: Performed By: #### C BCDF #### [facility] [address] [place] [address] Monocytes (Bld) [#/Vol] 0.73 10*3/uL Normal 0.10 - 1.00 [facility] Comment on above: Performed By: #### C BCDF #### [facility] [address] [place] [address] Monocytes/100 WBC (Bld) 12.1 % Normal 2.0 - 10.0 [facility] Comment on above: Performed By: #### C BCDF #### [facility] [address] [place] [address] Neutrophils (Bld) [#/Vol] 4.97 10*3/uL Normal 1.20 - 7.70 [facility] Comment on above: Performed By: #### C BCDF #### [facility] [address] [place] [address] Neutrophils/100 WBC (Bld) 82.4 % Normal 40.0 - 80.0 [facility] Comment on above: Performed By: #### C BCDF #### [facility] [address] [place] [address] NUCLEATED RBC 0.0 /100 WBC Normal 0.0-0.0 [facility] Comment on above: Performed By: #### C BCDF #### [facility] [address] [place] [address] Platelets (Bld) [#/Vol] 156 10*3/uL Normal 150 - 450 [facility] Comment on above: Performed By: #### C BCDF #### [facility] [address] [place] [address] RBC 4.99 x10E12/L Normal 4.50 - 5.90 [facility] Comment on above: Performed By: #### C BCDF #### [facility] [address] [place] [address] WBC (Bld) [#/Vol] 6.0 10*3/uL Normal 4.4 - 11.3 [facility] Comment on above: Performed By: #### C BCDF #### [facility] [address] [place] [address] COMPREHENSIVE PANELon 2022 Albumin [Mass/Vol] 4.5 g/dL Normal 3.4 - 5.0 [facility] Comment on above: Performed By: #### C MP #### [facility] [address] [place] [address] ALP [Catalytic activity/Vol] 74 U/L Normal 33 - 136 [facility] Comment on above: Performed By: #### C MP #### [facility] [address] [place] [address] ALT [Catalytic activity/Vol] 27 U/L Normal 10 - 52 [facility] Comment on above: Result Comment: Kristyn ents treated with Sulfasalazine may generate falsely decreased results for ALT. Performed By: #### C MP #### [facility] [address] [place] [address] Anion gap [Moles/Vol] 14 mmol/L Normal 10 - 20 [facility] Comment on above: Performed By: #### C MP #### [facility] [address] [place] [address] AST [Catalytic activity/Vol] 25 U/L Normal 9 - 39 [facility] Comment on above: Performed By: #### C MP #### [facility] [address] [place] [address] Bilirubin [Mass/Vol] 0.5 mg/dL Normal 0.0 - 1.2 [facility] Comment on above: Performed By: #### C MP #### [facility] [address] [place] [address] Calcium [Mass/Vol] 9.0 mg/dL Normal 8.6 - 10.6 [facility] Comment on above: Performed By: #### C MP #### [facility] [address] [place] [address] Chloride [Moles/Vol] 104 mmol/L Normal 98 - 107 [facility] Comment on above: Performed By: #### C MP #### [facility] [address] [place] [address] Creatinine [Mass/Vol] 1.27 mg/dL Normal 0.50 - 1.30 [facility] Comment on above: Performed By: #### C MP #### [facility] [address] [place] [address] GFR/1.73 sq M.predicted among non-blacks MDRD (S/P/Bld) [Vol rate/Area] 64 mL/min/{1.73_m2} Normal >90 [facility] Comment on above: Result Comment: CALC ULATIONS OF ESTIMATED GFR ARE PERFORMED USING THE 2020 CKD-EPI STUDY REFIT EQUATION WITHOUT THE RACE VARIABLE FOR THE IDMS-TRACEABLE CREATININE METHODS. https://jasn.asnjournals.org/content/early//ASN.416678 7752 Performed By: #### C MP #### [facility] [address] [place] [address] Glucose [Mass/Vol] 98 mg/dL Normal 74 - 99 [facility] Comment on above: Performed By: #### C MP #### [facility] [address] [place] [address] HCO3 (Bld) [Moles/Vol] 23 mmol/L Normal 21 - 32 [facility] Comment on above: Performed By: #### C MP #### [facility] [address] [place] [address] Potassium [Moles/Vol] 4.1 mmol/L Normal 3.5 - 5.3 [facility] Comment on above: Performed By: #### C MP #### [facility] [address] [place] [address] Protein [Mass/Vol] 7.2 g/dL Normal 6.4 - 8.2 [facility] Comment on above: Performed By: #### C MP #### [facility] [address] [place] [address] Sodium [Moles/Vol] 137 mmol/L Normal 136 - 145 [facility] Comment on above: Performed By: #### C MP #### [facility] [address] [place] [address] Urea nitrogen [Mass/Vol] 13 mg/dL Normal 6 - 23 [facility] Comment on above: Performed By: #### C MP #### [facility] [address] [place] [address] Electrocardiogram 12 Leadon 05-18-2022 Electrocardiogram 12 Lead Ventricular Rate 97 Atrial Rate 97 P-R Interval 124 QRS Duration 90 Q-T Interval 344 QTC Calculation(Bazett) 436 P Cantil 38 R Cantil 75 T Cantil -8 QRS Count 16 Q Onset 225 P Onset 163 P Offset 211 T Offset 397 QTC Fredericia 403 Diagnosis Class Normal Diagnosis Please see ED Provider Note for formal interpretation Confirmed by Maurilio Yates ([id number]) on 05/19/2022 1:27:48 PM Normal [facility] LACTATEon 05-18-2022 Lactate [Moles/Vol] 0.7 mmol/L Normal 0.4 - 2.0 [facility] Comment on above: Result Comment: Gail puncture immediately after or during the administration of Metamizole may lead to falsely low results. Testing should be performed immediately prior to Metamizole dosing. Performed By: #### L ACT #### [facility] [address] [place] [address] PHOSPHORUSon 05-18-2022 Phosphate [Mass/Vol] 2.9 mg/dL Normal 2.5 - 4.9 [facility] Comment on above: Result Comment: The performance characteristics of phosphorus testing in heparinized plasma have been validated by the individual laboratory site where testing is performed. Testing on heparinized plasma is not approved by the FDA; however, such approval is not necessary. Performed By: #### P HOS #### [facility] [address] [place] [address] TROPONIN I, HIGH SENSITIVITY on 05-18-2022 TROPONIN I, HIGH SENSITIVITY 5 ng/L Normal 0 - 53 [facility] Comment on above: Result Comment: . Less than 99th percentile of normal range cutoff- Female and children under 18 years old <35 ng/L; Male <54 ng/L: Negative Repeat testing should be performed if clinically indicated. . Female and children under 18 years old 35-120 ng/L; Male 54-120 ng/L: Consistent with possible cardiac damage and possible increased clinical risk. Serial measurements may help to assess extent of myocardial damage. . >120 ng/L: Consistent with cardiac damage, increased clinical risk and myocardial infarction. Serial measurements may help assess extent of myocardial damage. . NOTE: Children less than 1 year old may have higher baseline troponin levels and results should be interpreted in conjunction with the overall clinical context. . NOTE: Troponin I testing is performed using a different testing methodology at [facility] than at other [facility]. Direct result comparisons should only be made within the same method. Performed By: #### T [facility] #### [facility] [address] [place] [address] Triage - EDon 05-18-2022 Triage - ED Chart Review: PRIMARY ASSESSMENT SUPRIYA GTZ's primary assessment is Within Defined Limits. The airway is open and patent. Breathing spontaneous and unlabored with clear breath sounds bilaterally. Circulation is normal with good peripheral pulses. Skin is warm and dry and color is normal for race. ARRIVAL INFORMATION Mode of Arrival: private vehicle CHIEF COMPLAINT SUPRIYA GTZ is a Male patient with a chief complaint of multiple medical complaints (COVID+). Other Complaints: SUPRIYA GTZ is a 61y old with no reported PMHx is presenting to [facility] ED s/p testing positive for COVID with an at home COVID test last night. Patient then went to [facility] to confirm at home test, which showed positive again. He endorses dizziness, nausea and not being able to tolerate PO without emesis. Denies any bloody stools. Denies any chest pain. NKDA Triage Date/Time: 18-May-2022 19:36 JALEESA: 3 Vital Signs: Temperature: 102.0F ( 38.9C) taken oral Blood Pressure: 144/87 Mean: Heart Rate: 99 Respiratory Rate: 18 Pulse Oximetry: 96% on room air, no respiratory support. Height: 5 feet 7.00 inches. 170.1 CM Weight: 172.1 pounds. Calculated 78.1 kg. (stated) Calculated BMI (kg/m2): 26.992 Calculated BSA (m2) 1.92 David Coma Scale: Best Eye Response: (E4) spontaneous Best Motor Response: (M6) obeys commands Best Verbal Response: (V5) oriented David Score: 15 Patient has homicidal thoughts: no Risk Screens Suicide Risk Screen In the Past Month: Have you wished you were or wished you could go to sleep and not wake up no In the Past Month: Have you had any actual thoughts of killing yourself no In Your Lifetime: Have you ever done anything, started to do anything, or prepared to do anything to end your life no Carroll Fall Scale Screening Has the patient fallen before (or is the patient in the ED as a result of a fall) has not had a fall Does the patient have an impaired gait does not have impaired gait Is the patient cognitively impaired not cognitively impaired Interventions: Carroll Fall Interventions: LOW INTERVENTIONS: *patient oriented to surroundings and call system, * patient/family falls education completed and documented, *patients fall status communicated during bedside handoff, *whiteboard updated, *mode of toileting discussed with patient, *bed in low position with brakes locked, *call light in reach, * non-skid footwear TRAVEL HISTORY Travel History Coronavirus Screening: no exposure or symptoms Travel Exposure History: NO travel to International locations in the past 30 days PAIN Pain Scale Used: NAZ Past Medical History: Past Medical History Reviewedyes Electronic Signatures: Ricardo Barboza) (Signed 18-May-2022 19:44) Authored: Quick Triage, Risk Screens, Pain, ABCD, Travel History, Chart Review, Scores, Past Medical History Last Updated: 18-May-2022 19:44 by Ricardo Barboza) Normal [facility] Basophil percentageon 2021 Bilirubin [Mass/Vol] 0.40 mg/dL 0.20-1.00 [facility] Work Phone: Comment on above: For patients on eltr ombopag therapy, use of Dimension [place] TBIL is not recommended. Chloride [Moles/Vol] 107 mmol/L 98-107 [facility] Work Phone: Glucose [Mass/Vol] 102 mg/dL 74-106 [facility] Work Phone: Comment on above: Fasting Glucose resu lt from 100 to 125 mg/dL suggests IMPAIRED HOMEOSTASIS per A.D.A. criteria. Potassium [Moles/Vol] 4.8 mmol/L 3.5-5.1 [facility] Work Phone: Protein [Mass/Vol] 7.6 g/dL 6.4-8.2 [facility] Work Phone: Sodium [Moles/Vol] 140 mmol/L 136-145 [facility] Work Phone: Laboratory - Chemistry and C hemistry - challengeon 10-25-2021 ALP [Catalytic activity/Vol] 97 U/L 45-117 [facility] Work Phone: ALT [Catalytic activity/Vol] 27 U/L 16-61 [facility] Work Phone: CO2 [Moles/Vol] 25.0 mmol/L 21.0-32.0 [facility] Work Phone: Globulin (S) [Mass/Vol] 3.9 g/dL 2.2-4.2 [facility] Work Phone: Urea nitrogen/Creatinine [Mass ratio] 11.6 mg/mg 10-20 [facility] Work Phone: No Panel Informationon 10-25 Estimated GFR (MDRD) Amer 59 mL/min >60 [facility] Work Phone: Comment on above: GFR Calc Estimated GFR (MDRD) Non-Af Amer 49 mL/min >60 [facility] Work Phone: Comment on above: Non- GFR Calc Serum or plasma albumin kevin urement (mass/volume)on 10-25-2021 Albumin [Mass/Vol] 3.7 g/dL 3.2-5.0 [facility] Work Phone: Serum or plasma albumin/glob ulin mass ratioon 10-25-2021 Albumin/Globulin [Mass ratio] 0.9 {ratio} 0.9-2.4 [facility] Work Phone: Serum or plasma calcium kevin urement (mass/volume)on 10-25-2021 Calcium [Mass/Vol] 9.4 mg/dL 8.5-10.1 [facility] Work Phone: Serum or plasma creatinine m easurement (mass/volume)on 10-25-2021 Creatinine [Mass/Vol] 1.55 mg/dL 0.70-1.30 [facility] Work Phone: Comment on above: The validity of the calculated GFR & GFRAA in patients over 70 years has not been determined. Clinical correlation is essential. 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 Patient donated kidney to his son. This was complicated by drainage from his most lateral port incision. His wound eventually healed well. - Stable condition. No recent hospitalizations. No issues with surgical site. Patient had prior history of leakage which is now clear. Creatinine was 1.47 in 07/2018 and was 0.8 before nephrectomy. - Hemodynamics - Blood pressures are optimal. - Will follow up with lipid panel and A1c. Patient can follow with his PCP. Addendum : Creatinine been stable @1.48 with GFR 49 amd UPC is 0.08 with clear urine .updated patient about the labs . By signing my name below, I, Nella Mcdonough, attest that this documentation has been prepared under the direction and in the presence of Dr. HCLOÉ COPE. All medical record entries made by the Scribe were at my direction and personally dictated by me. I have reviewed the chart and agree that the record accurately reflects my personal performance of the history, physical exam, discussion and plan. Chief Complaint Follow up s/p donor nephrectomy History of Present Illness Donor Evaluation and Donor Follow Up: Follow-up of kidney donation Referring Provider: Dr. Ever Angel ( ). Ethnicity: White: Not Specified/Unknown. HPI: Mr. SUPRIYA GTZ is a 59 year old male s/p left donor nephrectomy in 2018. Patient donated a kidney to his son. This was complicated by drainage from his most lateral port incision. His wound eventually healed well. Today, the patient presents for routine follow-up. The patient is doing well. He reports his son is doing well. Patient states he remains active by walking. Patient reports antiphylactic reaction to preservative in vaccines so he is unable to receive COVID vaccine. He is maintaining safety precautions against COVID pandemics. His has received COVID vaccine. His systolic blood pressure runs 115 - 122. He is retired. Patient is completing labs today. Patient denies fever, chills, nausea, vomiting, and diarrhea. Eating and drinking well. Denies chest pain and shortness of breath. Psychiatric Illness: No prior history of psychiatric illness. PHS increased risk behavior: No PHS increased risk behavior. Pertinent Family History: kidney disease. Recommendations: available laboratory data was reviewed and available radiology images were reviewed. Complications: Has the donor been readmitted since: No. Review of Systems Constitutional: no fever and no chills. ENT: no earache. Cardiovascular: no chest pain. Respiratory: no chronic cough and no shortness of breath during exertion. Gastrointestinal: no abdominal pain, no constipation, no vomiting, no diarrhea and no nausea. Genitourinary: no dysuria and no hematuria. Musculoskeletal: no arthralgias and no myalgias. Skin: no rashes, no skin lesions and no itching. Neurological: no headaches and no dizziness. Psychiatric: no confusion. Endocrine: no cold intolerance and no heat intolerance. 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 Psychiatric: orientation to person, place, and time. Appropriate mood and affect. Neurologic: normal examination of cranial nerves, normal examination of motor strength and normal examination of sensation. Neck: no thyromegaly, jugular venous distension or audible carotid bruits. Cardiovascular: auscultation of heart: normal rate and rhythm, normal S1 and S2, no murmurs. There was no pericardial friction rub. Pulmonary: lungs are clear to auscultation. Abdomen: soft, non tender to palpation, normoactive bowel sounds. No organomegaly, masses or audible bruits and abdominal aorta: normal. Kidneys: bilateral lower poles not palpable. Extremities: exam of extremities was normal. No clubbing of the fingernails and no cyanosis and no edema present. Skin: warm, pink, well conditioned; no rashes or lesions. No livedo reticularis, hair and nails normal and skin and subcutaneous tissue normal. Lymphatic: no lymphadenopathy. Results/Data Creatinine, [id number] 09:46AMSKadeem zepeda Test NameResultFlagReference CREATININE1.48 mg/dLHSee Below Reference Range: 0.50 - 1.30 GFR Non Bzqadxrs69 mL/min/1.73m2A>60 GFR Avqdlkic32 mL/min/1.73m2A>60 CALCULATIONS OF ESTIMATED GFR ARE PERFORMED USING THE MDRD STUDY EQUATION FOR THE IDMS-TRACEABLE CREATININE METHODS. CLIN CHEM 2007;53:766-72 CREATININE1.48 mg/dLHSee Below Reference Range: 0.50 - 1.30 GFR Non Bhvyymgh35 mL/min/1.73m2A>60 GFR Nlczjnrs38 mL/min/1.73m2A>60 CALCULATIONS OF ESTIMATED GFR ARE PERFORMED USING THE MDRD STUDY EQUATION FOR THE IDMS-TRACEABLE CREATININE METHODS. CLIN CHEM 2007;53:766-72 Sidecchset05Ofw5672 09:46Kadeem Rivsa Test NameResultFlagReference Color, UrineYELLOWSee Below Reference Range: STRAW,YELLOW Appearance, UrineCLEARCLEAR Specific [place], Urine1.010See Below Reference Range: 1.005 - 1.035 pH, Urine5.05.0 - 8.0 Protein, UrineNEGATIVE mg/dLNEGATIVE Glucose, UrineNEGATIVE mg/dLNEGATIVE Blood, UrineNEGATIVENEGATIVE Ketones, UrineNEGATIVE mg/dLNEGATIVE Bilirubin, UrineNEGATIVENEGATIVE Urobilinogen, Urine<2.0 mg/dL0.0 - 1.9 Nitrite, UrineNEGATIVENEGATIVE Leukocyte Esterase, UrineNEGATIVENEGATIVE Color, UrineYELLOWSee Below Reference Range: STRAW,YELLOW Appearance, UrineCLEARCLEAR Specific [place], Urine1.010See Below Reference Range: 1.005 - 1.035 pH, Urine5.05.0 - 8.0 Protein, UrineNEGATIVE mg/dLNEGATIVE Glucose, UrineNEGATIVE mg/dLNEGATIVE Blood, UrineNEGATIVENEGATIVE Ketones, UrineNEGATIVE mg/dLNEGATIVE Bilirubin, UrineNEGATIVENEGATIVE Urobilinogen, Urine<2.0 mg/dL0.0 - 1.9 Nitrite, UrineNEGATIVENEGATIVE Leukocyte Esterase, UrineNEGATIVENEGATIVE Total Protein, Urine [id number] 09:46Kadeem Rivas Test NameResultFlagReference Total Protein Urine Spot7 mg/dL5 - 25 T. Protein/Creat Ratio0.08 mg/mg CreatSee Below Reference Range: 0.00 - 0.17 Creatinine, Urine Spot88.2 mg/dLSee Below Reference Range: 20.0 - 370.0 Total Protein Urine Spot7 mg/dL5 - 25 T. Protein/Creat Ratio0.08 mg/mg CreatSee Below Reference Range: 0.00 - 0.17 Creatinine, Urine Spot88.2 mg/dLSee Below Reference Range: 20.0 - 370.0 Signatures Electronically signed by : Chloé Cope MD; Jun 26 2020 4:32PM EST (Author) Normal [facility] CNPNon 12-24-2016 CNPN Telephone (GENSWS) SUPRIYA GTZ JR. ([id number]) 1960 MDate Time Provider Department12/24/16 JOSH ZAVALA During your visit today, we recorded the following information about you:Jsoh Zavala MD 12/24/2016 5:29 AM SignedPolyps returned as hyperplastic. Recommend 10 year follow-up. - Please callJose Rossi LPN 12/26/2016 8:45 AM SignedDetailed message left with results.Allergies As of Date: 12/24/2016 Noted Allergy ReactionCODEINE 03/19/2011 8 - GI UpsetDate Reviewed: 12/20/2016Reviewed by: Katelynn William) JEANNIE Lopez - Fully AssessedReason for Visit: Results [95]Prescriptions as of 12/24/2016 Sig: * GABAPENTIN 800 MG TABLET Take 800 mg by mouth three ti* * TRAMADOL 50 MG TABLET Take 50 mg by mouth every 6 h*Problem List As Of Date 12/24/2016 Noted Resolved Chronic pain disorder [G89.4] INVALID FOR* Lumbosacral neuritis [M54.17] INVALID FOR* Lumbar spondylosis [M47.816] INVALID FOR* DDD (degenerative disc disease) [VIC7730] INVALID FOR* Lumbar disc herniation [M51.26] INVALID FOR* Sacroiliac joint pain [M53.3] INVALID FOR* Depression [F32.9] INVALID FOR* 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 [place] no history of colon complaints.?The patient notes no history of upper GI complaints.?Supriya has undergone prior endoscopy. He had a colonoscopy by Dr. Leblanc 2011 - 3 polyps were removed. He recommended 5 year follow up.?The patient will be donating a kidney to his son. It was recommended hehave his follow up colonoscopy prior to donation?The patient is being seen by me today at the request of Dr. Ever Collazo MD for my opinion and advice regarding screening colonoscopy.?? PAST?MEDICAL?HISTORYPAST MEDICAL HISTORYDiagnosis Date- Displacement of lumbar intervertebral disc ??? PAST?SURGICAL?HISTORYPAST SURGICAL HISTORYProcedure Laterality Date- CARPAL TUNNEL ? ?- COLONOSCOP W/ OR W/O [facility] SPEC ? 02/01/2012? Colonoscopy- EYE SURGERY PROCEDURE ? ?- REPAIR OF TENNIS ELBOW ? ?- REVISE ULNAR NERVE AT ELBOW ? CURRENT?MEDICATIONS ?Current Outpatient Prescriptions:gabapentin (NEURONTIN) 800 mg ORAL tablet Take 800 mg by mouth three timesdaily.traMADOL (ULTRAM) 50 mg ORAL tablet Take 50 mg by mouth every 6 hours asneeded.DULoxetine 60 mg capsule Take 60 mg by mouth once daily.traZODONE 100 mg ORAL tablet Take 1 tablet by mouth at bedtime as needed(MR X 1).quetiapine XR (SEROQUEL XR) 50 mg ORAL Tb24 Take by mouth daily atbedtime.?No current facility-administered medications for this visit.?ALLERGIES: Codeine?PERSONAL HISTORY: SOCIAL?HISTORY Social History Marital status: Spouse name: Years of education: Number of children:?Social History Main Topics Smoking status: Former Smoker Packs/day: 1.00 Years: 35.00 Smokeless status: Never Used Alcohol use: No Drug use: No?FAMILY HISTORY: FAMILY?HISTORYFAMILY HISTORYProblem Relation Age of Onset- None Mother ?- None Father ???REVIEW OF SYMPTOMS: The review of systems data was entered by the nurse and reviewed by me?Nursing Notes:Nata Valenzuela RN 12/12/2016 9:41 AM SignedREVIEW OF SYSTEMS: General: The patient denies fatigue, denies weight loss, deniesweight gain, denies feeling hot, and denies feelings of cold. Eyes: The patient denies glaucoma, denies eye injury/surgery, doesnot wear glasses or contacts. Ear/Nose/Throat: The patient denies allergies, NOTES hayfever,denies ear infections, and denies bloody noses. Cardiovascular: The patient denies chest pain, denies heart disease,denies high blood pressure,denies cardiac stent, denies prior heartattack, denies irregular heart beat, denies high cholesterol, denies poorcirculation, denies heart failure, other cardiac issues, deniesclaudication, denies cold feet, denies peripheral arterial stent. Respiratory: The patient denies tuberculosis, denies pneumonia,denies frequent cough, denies pulmonary embolism, denies shortness ofbreath, and denies coughing up blood. Gastrointestinal: The patient denies difficulty swallowing, deniesacid reflux, denies ulcers, denies vomiting, denies jaundice/hepatitis,denies gallbladder problems, denies black or tarry stools, denieshemorrhoids, denies bleeding from rectum, denies diverticulitis, deniesconstipation, denies diarrhea, denies loss of stool control, and denieshernias. Kidney/Bladder: The patient denies kidney stones, denies urineinfections, and denies bloody urine. Skin: The patient denies a history of skin cancer, deniesbleeding/changing moles, and denies a history of skin rash. Neurologic: The patient denies a history of epilepsy/convulsions,denie s headaches, denies head/spinal injuries, and denies stroke/TIA. Psychiatric: The patient denies psychiatric medications, deniesdepression, and denies voices, denies substance abuse. Endocrine: The patient denies thyroid disorders, denies diabetes,and denies hormonal problems. Hematologic: The patient denies a history of bruising, deniesbleeding, and denies anemia, denies blood clots. Infections: The patient denies a history of measles and mumps,denies rheumatic fever, and denies sexually transmitted diseases. Musculoskeletal: The patient denies back pain/injury, denies backproblems, denies sciatica, denies knee/foot trouble, denies arthritis, ordenies gout.??When was patient's last Mammogram screening? N/A? Last Colonoscopy: 01/2012?Nata Valenzuela RN???PHYSICAL EXAMINATION:?General: The patient is 56 year old male, well nourished, well hydratedin no acute distress. The patient is oriented to time, place, and person.?VITALS: Blood pressure 120/70, pulse 72, weight 78.5 kg (173 lb). Bodymass index is 26.3 kg/(m2).?HEENT: Normal cephalic, ataumatic, pupils are equally round, sclera areanicteric, mucous membranes are moist, oropharynx is clear. Neck has nomasses, asymmetry or lymphadenopathy. Thyroid is unremarkable.?Respiratory: Clear to auscultation and percussion. Normal respiratoryexcursion and pattern.?Cardiac: Examination is regular rate and rhythm.?Abdominal exam: Soft, nontender, with no palpable masses. Nohepatosplenomegaly. No palpable hernias.?Rectal exam: exam deferred?Extremities: no clubbing, cyanosis or edema. No adenopathy.?Other:?LABORAT ORY VALUES: As Noted?RADIOLOGIC STUDIES: As Noted?AssessmentIMPRESSION : need for screening colonoscopy?PLAN: I plan to perform lower endoscopy. We discussed the risks andbenefits of the planned endoscopy. I have informed the patient thatcomplications can occur including failure to complete the endoscopy andperforation. The patient had the opportunity to ask questions concerningthe planned endoscopy. My staff has also explained the procedure to thepatient in understandable terms and has given the patient printed materialconcerning the procedure. The patient freely consents to surgery.?I plan to use golytely bowel preparation for endoscopy???Diagnoses: (Z12.11) Screening for colon cancer (primary encounterdiagnosis)?A letter was sent to Dr. Ever Angel MD indicating the above findingfor this patient.???Return to Clinic: The patient is instructed to follow-up with me after thetesting has been completed.? Josh Zavala MD [facility] NURSING PROGon 12-20-2016 NURSING PROG HNO ID: [id number] thor: Katelynn ValenteRnBert Millerice: (none)Author Type: Registered NurseType: Nursing Progress NoteFiled: 12/20/2016 9:27 AMNote Text:Patient did not experience a fall prior to discharge.Patient did not experience a burn prior to discharge.Katelynn Lopez RN [facility] NURSING PROG HNO ID: [id number] thor: Bert Braxton Rnice: (none)Author Type: Registered NurseType: Nursing Progress NoteFiled: 12/20/2016 9:04 AMNote Text:Arrived in phase II via cart. Left lateral position. Sedated, butresponds to verbal stimuli. Color normal; skin warm and dry.Respirations wnl and unlabored. Abdomen soft and with + bowel sounds inquads X 4. Family at bedside. Patient resting comfortably. Dr. Burnett bedside to review procedure with patient and family. Katelynn Lopez RN [facility] NURSING PROG HNO ID: [id number] thor: Kindra Perez Rn: (none)Author Type: Registered NurseType: Nursing Progress NoteFiled: 12/20/2016 8:45 AMNote Text:Patient did not experience a fall within the Intraoperative area.Patient did not experience a burn within the Intraoperative area.Myriam Sharma RN [facility] NURSING PROG HNO ID: [id number] thor: Bert Tan Rnice: (none)Author Type: Registered NurseType: Nursing Progress NoteFiled: 12/20/2016 8:14 AMNote Text:[facility] PRE-OP NURSING HAND OFF NOTESBAR Hand off given to Pao Allen RN.Hand off was communicated verbally and at the patient's bedside and allquestions were answered. FALLS/BURNSPatient did not experience a fall within the Preoperative area.Patient did not experience a burn within the Preoperative area.Sandi Merritt RN [facility] PT EDon 12-20-2016 PT ED HNO ID: [id number] thor: Bert Braxton Rnice: (none)Author Type: Registered NurseType: Patient EducationFiled: 12/20/2016 9:06 AMNote Text:AMBULATORY PATIENT EDUCATIONTOPIC: Survival Skills: GI PROCEDURES: ColonoscopyREADINESS TO LEARNCOGNITIVE ABILITY: Alert and orientedMOTIVATION TO LEARN: InterestedFAMILY SUPPORT: High - Very involved in pt careINSTRUCTION PROVIDED TO: Patient and family memberPATIENT LEARNS BEST BY: Multiple MethodsFACTORS AFFECTING LEARNING: NonePHYSICAL LIMITATIONS AFFECTING LEARNING: NoneLEARNING RESPONSEDIAGNOSIS: post colonoscopy; colon polypsMETHOD OF INSTRUCTION: Individual instructionWritten instruction - handoutsVerbal instructionPATIENT / FAMILY RESPONSE: Information received as demonstrated byinterest and questionsFOLLOW-UP PLAN: Follow up phone call.Contact information given.Repeat colonoscopy in 5 years.SUPPLEMENTAL MATERIAL: Procedure discharge instructionsREFERRAL (RECOMMENDATION): NoneElectronically Signed By: Katelynn Lopez RN In Department: AMBULATORYSURGERY [facility] PT ED HNO ID: [id number] thor: Kindra Braxton Rn: (none)Author Type: Registered NurseType: Patient EducationFiled: 12/20/2016 7:03 AMNote Text:Discharge Instructions were reviewed pre-operatively with the patient.All questions and concerns were addressed.Katelynn Lopez RN [facility] SURGICAL PATHOLOGYon 017 SURGICAL PATHOLOGY Specimen originated from [facility] #: [id number] Physician: JOSH ZAVALA ([id number]) __FINAL DIAGNOSIS1. Colon, at 50 cm, polypectomy (A) - Hyperplastic polyp. 2. Colon, at 20 cm, polypectomy (B) - Hyperplastic polyp. DSA/gp 12/21/2016Shruti Rae M.D.(Electronic Signature) S PECIMEN SUBMITTEDA: COLON, POLYP AT 50 CM B: COLON, POLYP AT 20 CM CLINICAL DATAEncounter for colonoscopy due to history of adenomatous colonic polyps[Z12.11, Z86.010]GROSS DESCRIPTIONA. Received in formalin is one piece of nunez, soft tissue measuring 0.6 x0.4 x 0.2 cm. Totally submitted in one cassette.B. Received in formalin is one piece of nunez, soft tissue measuring 0.3 x0.2 x 0.2 cm. Totally submitted in one cassette.Gross examination performed at [facility], [address] [place] [address] 12/20/2016 10:24:43 PMPatient ID #: [id number] of Report: 12/21/2016Date of Procedure: 12/20/2016Date of Receipt: 12/20/2016Submitted by: JOSH ZAVALA ([id number])Location: [id number] interpretation performed at [place] [address]. Normal [facility] Comment on above: Performed By: #### P ATHS ####[place] [id number] [place], [place] [phone] CNOVon 12-12-2016 CNOV Office Visit (GENSWS) SUPRIYA GTZ JR. ([id number]) 1960 [facility] Time Provider Department12/12/16 9:20 AM JOSH ZAVALA During your visit today, we recorded the following information about you: Pulse Blood pressure Weight 72/minute 120/70 78.5 kgNata Nicolas DENNIS 12/12/2016 9:41 AM SignedREVIEW OF SYSTEMS: General: The patient denies fatigue, denies weight loss, denies weightgain, denies feeling hot, and denies feelings of cold. Eyes: The patient denies glaucoma, denies eye injury/surgery, does notwear glasses or contacts. Ear/Nose/Throat: The patient denies allergies, NOTES hayfever, denies earinfections, and denies bloody noses. Cardiovascular: The patient denies chest pain, denies heart disease,denies high blood pressure,denies cardiac stent, denies prior heart attack,denies irregular heart beat, denies high cholesterol, denies poor circulation,denies heart failure, other cardiac issues, denies claudication, denies coldfeet, denies peripheral arterial stent. Respiratory: The patient denies tuberculosis, denies pneumonia, deniesfrequent cough, denies pulmonary embolism, denies shortness of breath, anddenies coughing up blood. Gastrointestinal: The patient denies difficulty swallowing, denies acidreflux, denies ulcers, denies vomiting, denies jaundice/hepatitis, deniesgallbladder problems, denies black or tarry stools, denies hemorrhoids, deniesbleeding from rectum, denies diverticulitis, denies constipation, deniesdiarrhea, denies loss of stool control, and denies hernias. Kidney/Bladder: The patient denies kidney stones, denies urineinfections, and denies bloody urine. Skin: The patient denies a history of skin cancer, deniesbleeding/changing moles, and denies a history of skin rash. Neurologic: The patient denies a history of epilepsy/convulsions, deniesheadaches, denies head/spinal injuries, and denies stroke/TIA. Psychiatric: The patient denies psychiatric medications, deniesdepression, and denies voices, denies substance abuse. Endocrine: The patient denies thyroid disorders, denies diabetes, anddenies hormonal problems. Hematologic: The patient denies a history of bruising, denies bleeding,and denies anemia, denies blood clots. Infections: The patient denies a history of measles and mumps, deniesrheumatic fever, and denies sexually transmitted diseases. Musculoskeletal: The patient denies back pain/injury, denies backproblems, denies sciatica, denies knee/foot trouble, denies arthritis, ordenies gout.When was patient's last Mammogram screening? N/A Last Colonoscopy: valencia Zavala MD 12/12/2016 10:01 PM SignedHISTORY AND PHYSICALJesse W Rochester2REFERRING PHYSICIAN: Ever Angel [facility] COMPLAINT: Consult (colonoscopy)HPI: The patient is a 56 year old male referred for endoscopy. Supriya notes nohistory of colon complaints.The patient notes no history of upper GI complaints.Supriya has undergone prior endoscopy. He had a colonoscopy by Dr. Paz [id number] - 3 polyps were removed. He recommended 5 year follow up.The patient will be donating a kidney to his son. It was recommended he havehis follow up colonoscopy prior to donationThe patient is being seen by me today at the request of Dr. Ever Angel MDfor my opinion and advice regarding screening colonoscopy.PAST MEDICAL HISTORYDiagnosis Date- Displacement of lumbar intervertebral discPAST SURGICAL HISTORYProcedure Laterality Date- CARPAL TUNNEL- COLONOSCOP W/ OR W/O [facility] SPEC 02/01/2012 Colonoscopy- EYE SURGERY PROCEDURE- REPAIR OF TENNIS ELBOW- REVISE ULNAR NERVE AT ELBOWCurrent Outpatient Prescriptions:gabapentin (NEURONTIN) 800 mg ORAL tablet Take 800 mg by mouth three timesdaily.traMADOL (ULTRAM) 50 mg ORAL tablet Take 50 mg by mouth every 6 hours asneeded.DULoxetine 60 mg capsule Take 60 mg by mouth once daily.traZODONE 100 mg ORAL tablet Take 1 tablet by mouth at bedtime as needed (MR X1).quetiapine XR (SEROQUEL XR) 50 mg ORAL Tb24 Take by mouth daily at bedtime.No current facility-administered medications for this visit.ALLERGIES: CodeinePERSONAL HISTORY: Social History Marital status: Spouse name: Years of education: Number of children:Social History Main Topics Smoking status: Former Smoker Packs/day: 1.00 Years: 35.00 Smokeless status: Never Used Alcohol use: No Drug use: NoFAMILY HISTORY:FAMILY HISTORYProblem Relation Age of Onset- None Mother- None FatherREVIEW OF SYMPTOMS: The review of systems data was entered by the nurse and reviewed by Talib Notes:Nata Valenzuela RN 12/12/2016 9:41 AM SignedREVIEW OF SYSTEMS: General: The patient denies fatigue, denies weight loss, denies weightgain, denies feeling hot, and denies feelings of cold. Eyes: The patient denies glaucoma, denies eye injury/surgery, does notwear glasses or contacts. Ear/Nose/Throat: The patient denies allergies, NOTES hayfever, denies earinfections, and denies bloody noses. Cardiovascular: The patient denies chest pain, denies heart disease,denies high blood pressure,denies cardiac stent, denies prior heart attack,denies irregular heart beat, denies high cholesterol, denies poor circulation,denies heart failure, other cardiac issues, denies claudication, denies coldfeet, denies peripheral arterial stent. Respiratory: The patient denies tuberculosis, denies pneumonia, deniesfrequent cough, denies pulmonary embolism, denies shortness of breath, anddenies coughing up blood. Gastrointestinal: The patient denies difficulty swallowing, denies acidreflux, denies ulcers, denies vomiting, denies jaundice/hepatitis, deniesgallbladder problems, denies black or tarry stools, denies hemorrhoids, deniesbleeding from rectum, denies diverticulitis, denies constipation, deniesdiarrhea, denies loss of stool control, and denies hernias. Kidney/Bladder: The patient denies kidney stones, denies urineinfections, and denies bloody urine. Skin: The patient denies a history of skin cancer, deniesbleeding/changing moles, and denies a history of skin rash. Neurologic: The patient denies a history of epilepsy/convulsions, deniesheadaches, denies head/spinal injuries, and denies stroke/TIA. Psychiatric: The patient denies psychiatric medications, deniesdepression, and denies voices, denies substance abuse. Endocrine: The patient denies thyroid disorders, denies diabetes, anddenies hormonal problems. Hematologic: The patient denies a history of bruising, denies bleeding,and denies anemia, denies blood clots. Infections: The patient denies a history of measles and mumps, deniesrheumatic fever, and denies sexually transmitted diseases. Musculoskeletal: The patient denies back pain/injury, denies backproblems, denies sciatica, denies knee/foot trouble, denies arthritis, ordenies gout.When was patient's last Mammogram screening? N/A Last Colonoscopy: Valenzuela RNPHYSICAL EXAMINATION:General: The patient is 56 year old male, well nourished, well hydrated in noacute distress. The patient is oriented to time, place, and person.VITALS: Blood pressure 120/70, pulse 72, weight 78.5 kg (173 lb). Body massindex is 26.3 kg/(m2).HEENT: Normal cephalic, ataumatic, pupils are equally round, sclera areanicteric, mucous membranes are moist, oropharynx is clear. Neck has nomasses, asymmetry or lymphadenopathy. Thyroid is unremarkable.Respiratory: Clear to auscultation and percussion. Normal respiratoryexcursion and pattern.Cardiac: Examination is regular rate and rhythm.Abdominal exam: Soft, nontender, with no palpable masses. Nohepatosplenomegaly. No palpable hernias.Rectal exam: exam deferredExtremities: no clubbing, cyanosis or edema. No adenopathy.Other:LABORATOR Y VALUES: As NotedRADIOLOGIC STUDIES: As NotedAssessmentIMPRESSION: need for screening colonoscopyPLAN: I plan to perform lower endoscopy. We discussed the risks and benefitsof the planned endoscopy. I have informed the patient that complications canoccur including failure to complete the endoscopy and perforation. The patienthad the opportunity to ask questions concerning the planned endoscopy. Yeison has also explained the procedure to the patient in understandable termsand has given the patient printed material concerning the procedure. Thepatient freely consents to surgery.I plan to use golytely bowel preparation for endoscopyDiagnoses: (Z12.11) Screening for colon cancer (primary encounter diagnosis)A letter was sent to Dr. Ever Angel MD indicating the above finding forthis patient.Return to Clinic: The patient is instructed to follow-up with me after thetesting has been completed. Abimael Lea MD 12/12/2016 9:57 AM SignedCONSCIOUS SEDATIONHow to Prepare for Your Colonoscopy Using Golytely, Nulytely,Trilyte, or Colyte PreparationsIMPORTANT - Please Read These Instructions at Least 2 Weeks Before YourColonoscopyKey Instructions:Your bowel must be empty so that your doctor can clearly view your colon.Follow all of the instructions in this handout EXACTLY as they are written.If you do NOT follow the directions for when to start drinking the bowelpreparation (see next page), your colonoscopy WILL be cancelled.? Do NOT eat any solid food the ENTIRE day before your colonoscopy.? Buy your bowel preparation at least 5 days before your colonoscopy.? Do NOT mix the solution until the day before your colonoscopy.Designated Retail Brand Ambassador on the Day of Your ExamA responsible family member or friend MUST come with you to your colonoscopyand REMAIN in the endoscopy area until you are discharged! You are NOT ALLOWEDto drive, take a taxi or bus, or leave the Endoscopy Center ALONE.If you do not have a responsible port cdl a driver (family member or friend) with you totake you home, your exam can not be done with sedation and will be cancelled.MedicationsSome of the medicines you take may need to be stopped or adjusted before yourcolonoscopy.You MUST call the doctor who ordered any of the following medicines at least 2weeks before your colonoscopy.? Blood Thinners -- such as Coumadin? (warfarin), Plavix ? (clopidogrel),Ticlid ? (ticlopidine hydrochloride), Agrylin ? (anagrelide), Xarelto(rivaroxaban), Pradaxa (dabigatran), and Effient (Prasugrel).? Insulin or diabetes pills. Please call the doctor that monitors your glucoselevels. Your insulin dosage may need to be adjusted due to diet restrictionsrequired with this bowel preparation. (Please bring your diabetes medicationswith you on the day of your procedure.)If you take aspirin, continue it and ALL other medications prescribed by yourdoctor. On the day of your colonoscopy, take your medications with a sip ofwater.Five (5) Days Before Your ColonoscopyDo NOT take medications that stop diarrhea-- such as Imodium?, Kaopectate?, orPepto Bismol?.Do NOT take fiber supplements--such as Metamucil?, Citrucel?, or Perdiem?.Do NOT take products that contain iron--such as multi-vitamins--(the labellists what is in the products).Do NOT take vitamin E.Buy the prescription bowel preparation at your local pharmacy or drugstore.Three (3) Days Before Your ColonoscopyDo NOT eat high-fiber foods--such as popcorn, beans, seeds (flax, sunflower,quinoa), multigrain bread, nuts, salad/vegetables, or fresh and dried fruit.One (1) Day Before Your ColonoscopyOnly drink clear liquids the ENTIRE DAY before your colonoscopy. Do NOT eatany solid foods. Drink at least 8 ounces of clear liquids every hour afterwaking up. The clear liquids you can drink include:? water, apple or white grape juice; broth; coffee or tea (without milk orcreamer); clear carbonated beverages such as benita jovanni or lemon-timbi-sha shoshone soda;Gatorade? or other sports drinks (not red); Rigo-Aid? or other flavored drinks(not red); plain jello or other gelatins (not red); popsicles (not red)? Do NOT drink alcohol on the day before or the day of the procedure.When to Mix and Drink Your Bowel PreparationFollow the instructions on the label. After mixing, place the solution in therefrigerator for a couple of hours before drinking. You may add the flavorpacket that came with the bowel preparation. DO NOT add ice, sugar or anyflavorings to the solution.Single Dosing, Evening Before ColonoscopyStart drinking the bowel preparation at 6 PM the evening before yourcolonoscopy. Drink an 8 oz glass of bowel preparation every 10 minutes. Youmust finish drinking the solution by 9 PM.You may continue to drink clear liquids up to 2 hours before your exam. If youtake aspirin, take it and ALL other prescribed medicines with a sip of water onthe day of your colonoscopy.Contact InformationIf you are unable to keep your appointment or have any questions about theinstructions, please call the facility where the procedure is being performed.Call between the hours of 8:00 AM and 5:00 PM. If you are calling after 5:00PM, please call Nurse space systems operations craftsman at [phone].COLONOSCOPY PROCEDURE OVERVIEWPlease read prior to the procedureWhat is a Colonoscopy?A colonoscopy is an outpatient procedure in which the inside of the largeintestine (colon and rectum) is examined. A colonoscopy is commonly used toevaluate gastrointestinal symptoms, such as rectal and intestinal bleeding,abdominal pain, or changes in bowel habits. Colonoscopies are also performed inindividuals without symptoms to check for colorectal polyps or cancer. Ascreening colonoscopy is recommended for anyone 50 years of age and older, andfor anyone with parents, siblings or children with a history of colorectalcancer or polyps.What happens before a colonoscopy?To have a successful colonoscopy, your bowel must be empty so that yourphysician can clearly view the colon. To do this, it is very important to readand follow all of the instructions given to you at least 2 weeks BEFORE yourexam.If your bowel is not empty, your colonoscopy will not be successful and mayhave to be repeated.If you feel nauseated or vomit while taking the bowel preparation, wait 30minutes before drinking more fluid and start with small sips of solution. Someactivity (such as walking) or a few soda crackers may help decrease the nauseayou are feeling. If the nausea persists, please contact nurse reporting consultant [phone].You may experience skin irritation around the anus due to the passage of liquidstools. To prevent and treat skin irritation, you should: Apply Vaseline orDesitin ointment to the skin around the anus before drinking the bowelpreparation medications. These products can be purchased at any drug store.Wipe the skin after each bowel movement with disposable wet wipes instead oftoilet paper. These are found in the toilet paper area of the store. Sit in abathtub filled with warm water for 10 to 15 minutes after you finish passing astool; after soaking, blot the skin dry with a soft cloth, apply Vaseline orDesitin ointment to the anal area, and place a cotton ball just outside youranus to absorb leaking fluid.What happens during a colonoscopy?During a colonoscopy, an experienced physician uses a colonoscope (a long,flexible instrument about 1/2 inch in diameter) to view the lining of thecolon. The colonoscope is inserted into the rectum and advanced through thelarge intestine. If necessary during a colonoscopy, small amounts of tissue canbe removed for analysis (a biopsy) and polyps can be identified and entirelyremoved. In many cases, a colonoscopy allows accurate diagnosis and treatmentof colorectal problems without the need for a major operation.You are asked to wear a hospital gown and an IV will be started.You are given a pain reliever and a sedative intravenously (in your vein). Youwill feel relaxed and somewhat drowsy. You will lie on your left side, withyour knees drawn up towards your chest. A small amount of air is used to expandthe colon so the physician can see the colon akins. You may feel mild crampingduring the procedure. Cramping can be reduced by taking slow, deep breaths.The colonoscope is slowly withdrawn while the lining of your bowel is carefullyexamined.The procedure lasts from 30 minutes to 1 hour.What happens after a colonoscopy?You will stay in a recovery room for observation until you are ready fordischarge.You may feel some cramping or a sensation of having gas, but this quicklypasses.If sedation has been given, a responsible port cdl a driver (a family member or friend)must drive you home.Avoid alcohol, driving, and operating machinery for 24 hours following theprocedure.Unless otherwise instructed, you may immediately return to your normal diet. Werecommend you wait until the day after your procedure to resume normalactivities.If polyps were removed or a biopsy was taken, the physician performing yourcolonoscopy will tell you when it is safe to resume taking your blood thinners.If a biopsy was taken or a polyp was removed, you may notice a little amount ofrectal bleeding for 1 to 2 days after the procedure. If you have a large amountof rectal bleeding, high or persistent fevers, or severe abdominal pain withinthe next 2 weeks, please go to your local emergency room and call the physicianwho performed your exam.Referring Provider: EVER ANGEL [[id number]]Allergies As of Date: 12/12/2016 Noted Allergy ReactionCODEINE 03/19/2011 8 - GI UpsetDate Reviewed: 12/12/2016Reviewed by: Nata Valenzuela RN - Fully AssessedReason for Visit: Consult [173] Cmt: colonoscopyPrimary Visit Diagnosis:Screening for colon cancer [Z12.11] Other Visit Diagnosis:Kidney living donor evaluation, pre-op [Z01.818]Order(s):RBEEKAH PT ED DIGESTIVE DISEASES [[id number]] Order #: [id number]. #:[id number] [id number]: 1 peg 3350-Electrolytes (GOLYTELY) 236-22.74-6.74 -5.86 gram suspensionTake 4,000 mL by mouth one time only for 1 dose. Refer to printed prep instructions from your doctor.Disp: 1 BottleRfl: 0 COLONOSCOPY, SCREENING, HIGH RISK [[id number]] Order #: [id number] FUTURE SURGICAL REQUEST - ELECTIVE [[id number]] Order #: [id number]: 1Prescriptions as of 12/12/2016 Sig: * GABAPENTIN 800 MG TABLET Take 800 mg by mouth three ti* * TRAMADOL 50 MG TABLET Take 50 mg by mouth every 6 h* PEG 3350-ELECTROLYTES 236 GRA* Take 4,000 mL by mouth one ti* * DULOXETINE 60 MG CAPSULE,JES* Take 60 mg by mouth once ruel* * TRAZODONE 100 MG TABLET Take 1 tablet by mouth at bed* * QUETIAPINE ER 50 MG TABLET,EX* Take by mouth daily at bedti*Medication notes this encounter DULOXETINE 60 MG CAPSULE,DELAYED RELEASE >> Nata Valenzuela RN 12/12/2016 9:33 AM >> NATA VALENZUELA RN Dec 12, 2016 9:33 AM No longer taking TRAZODONE 100 MG TABLET >> Nata Valenzuela RN 12/12/2016 9:33 AM >> NATA VALENZUELA RN Dec 12, 2016 9:33 AM No longer taking QUETIAPINE ER 50 MG TABLET,EXTENDED RELEASE 24 HR >> Nata Valenzuela RN 12/12/2016 9:33 AM >> NATA VALENZUELA RN Dec 12, 2016 9:33 AM No longer takingProblem List As Of Date 12/12/2016 Noted Resolved Chronic pain disorder [G89.4] INVALID FOR* Lumbosacral neuritis [M54.17] INVALID FOR* Lumbar spondylosis [M47.816] INVALID FOR* DDD (degenerative disc disease) [OWI0719] INVALID FOR* Lumbar disc herniation [M51.26] INVALID FOR* Sacroiliac joint pain [M53.3] INVALID FOR* Depression [F32.9] INVALID FOR* 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 Other instructions from your clinician: CONSCIOUS SEDATION How to Prepare for Your Colonoscopy Using Golytely, Nulytely, Trilyte, or Colyte Preparations IMPORTANT - Please Read These Instructions at Least 2 Weeks Before Your Colonoscopy Chavez Instructions: Your bowel must be empty so that your doctor can clearly view your colon. Follow all of the instructions in this handout EXACTLY as they are written. If you do NOT follow the directions for when to start drinking the bowel preparation (see next page), your colonoscopy WILL be cancelled. ? Do NOT eat any solid food the ENTIRE day before your colonoscopy. ? Buy your bowel preparation at least 5 days before your colonoscopy. ? Do NOT mix the solution until the day before your colonoscopy. Designated Retail Brand Ambassador on the Day of Your Exam A responsible family member or friend MUST come with you to your colonoscopy and REMAIN in the endoscopy area until you are discharged! You are NOT ALLOWED to drive, take a taxi or bus, or leave the Endoscopy Center ALONE. If you do not have a responsible port cdl a driver (family member or friend) with you to take you home, your exam can not be done with sedation and will be cancelled. Medications Some of the medicines you take may need to be stopped or adjusted before your colonoscopy. You MUST call the doctor who ordered any of the following medicines at least 2 weeks before your colonoscopy. ? Blood Thinners -- such as Coumadin? (warfarin), Plavix ? (clopidogrel), Ticlid ? (ticlopidine hydrochloride), Agrylin ? (anagrelide), Xarelto (rivaroxaban), Pradaxa (dabigatran), and Effient (Prasugrel). ? Insulin or diabetes pills. Please call the doctor that monitors your glucose levels. Your insulin dosage may need to be adjusted due to diet restrictions required with this bowel preparation. (Please bring your diabetes medications with you on the day of your procedure.) If you take aspirin, continue it and ALL other medications prescribed by your doctor. On the day of your colonoscopy, take your medications with a sip of water. Five (5) Days Before Your Colonoscopy Do NOT take medications that stop diarrhea-- such as Imodium?, Kaopectate?, or Pepto Bismol?. Do NOT take fiber supplements--such as Metamucil?, Citrucel?, or Perdiem?. Do NOT take products that contain iron--such as multi-vitamins--(the label lists what is in the products). Do NOT take vitamin E. Buy the prescription bowel preparation at your local pharmacy or drugstore. Three (3) Days Before Your Colonoscopy Do NOT eat high-fiber foods--such as popcorn, beans, seeds (flax, sunflower, quinoa), multigrain bread, nuts, salad/vegetables, or fresh and dried fruit. One (1) Day Before Your Colonoscopy Only drink clear liquids the ENTIRE DAY before your colonoscopy. Do NOT eat any solid foods. Drink at least 8 ounces of clear liquids every hour after waking up. The clear liquids you can drink include: ? water, apple or white grape juice; broth; coffee or tea (without milk or creamer); clear carbonated beverages such as benita jovanni or lemon-timbi-sha shoshone soda; Gatorade? or other sports drinks (not red); Rigo-Aid? or other flavored drinks (not red); plain jello or other gelatins (not red); popsicles (not red) ? Do NOT drink alcohol on the day before or the day of the procedure. When to Mix and Drink Your Bowel Preparation Follow the instructions on the label. After mixing, place the solution in the refrigerator for a couple of hours before drinking. You may add the flavor packet that came with the bowel preparation. DO NOT add ice, sugar or any flavorings to the solution. Single Dosing, Evening Before Colonoscopy Start drinking the bowel preparation at 6 PM the evening before your colonoscopy. Drink an 8 oz glass of bowel preparation every 10 minutes. You must finish drinking the solution by 9 PM. You may continue to drink clear liquids up to 2 hours before your exam. If you take aspirin, take it and ALL other prescribed medicines with a sip of water on the day of your colonoscopy. Contact Information If you are unable to keep your appointment or have any questions about the instructions, please call the facility where the procedure is being performed. Call between the hours of 8:00 AM and 5:00 PM. If you are calling after 5:00 PM, please call Nurse space systems operations craftsman at [phone]. COLONOSCOPY PROCEDURE OVERVIEW Please read prior to the procedure What is a Colonoscopy? A colonoscopy is an outpatient procedure in which the inside of the large intestine (colon and rectum) is examined. A colonoscopy is commonly used to evaluate gastrointestinal symptoms, such as rectal and intestinal bleeding, abdominal pain, or changes in bowel habits. Colonoscopies are also performed in individuals without symptoms to check for colorectal polyps or cancer. A screening colonoscopy is recommended for anyone 50 years of age and older, and for anyone with parents, siblings or children with a history of colorectal cancer or polyps. What happens before a colonoscopy? To have a successful colonoscopy, your bowel must be empty so that your physician can clearly view the colon. To do this, it is very important to read and follow all of the instructions given to you at least 2 weeks BEFORE your exam. If your bowel is not empty, your colonoscopy will not be successful and may have to be repeated. If you feel nauseated or vomit while taking the bowel preparation, wait 30 minutes before drinking more fluid and start with small sips of solution. Some activity (such as walking) or a few soda crackers may help decrease the nausea you are feeling. If the nausea persists, please contact nurse reporting consultant at [phone]. You may experience skin irritation around the anus due to the passage of liquid stools. To prevent and treat skin irritation, you should: Apply Vaseline or Desitin ointment to the skin around the anus before drinking the bowel preparation medications. These products can be purchased at any drug store. Wipe the skin after each bowel movement with disposable wet wipes instead of toilet paper. These are found in the toilet paper area of the store. Sit in a bathtub filled with warm water for 10 to 15 minutes after you finish passing a stool; after soaking, blot the skin dry with a soft cloth, apply Vaseline or Desitin ointment to the anal area, and place a cotton ball just outside your anus to absorb leaking fluid. What happens during a colonoscopy? During a colonoscopy, an experienced physician uses a colonoscope (a long, flexible instrument about 1/2 inch in diameter) to view the lining of the colon. The colonoscope is inserted into the rectum and advanced through the large intestine. If necessary during a colonoscopy, small amounts of tissue can be removed for analysis (a biopsy) and polyps can be identified and entirely removed. In many cases, a colonoscopy allows accurate diagnosis and treatment of colorectal problems without the need for a major operation. You are asked to wear a hospital gown and an IV will be started. You are given a pain reliever and a sedative intravenously (in your vein). You will feel relaxed and somewhat drowsy. You will lie on your left side, with your knees drawn up towards your chest. A small amount of air is used to expand the colon so the physician can see the colon akins. You may feel mild cramping during the procedure. Cramping can be reduced by taking slow, deep breaths. The colonoscope is slowly withdrawn while the lining of your bowel is carefully examined. The procedure lasts from 30 minutes to 1 hour. What happens after a colonoscopy? You will stay in a recovery room for observation until you are ready for discharge. You may feel some cramping or a sensation of having gas, but this quickly passes. If sedation has been given, a responsible port cdl a driver (a family member or friend) must drive you home. Avoid alcohol, driving, and operating machinery for 24 hours following the procedure. Unless otherwise instructed, you may immediately return to your normal diet. We recommend you wait until the day after your procedure to resume normal activities. If polyps were removed or a biopsy was taken, the physician performing your colonoscopy will tell you when it is safe to resume taking your blood thinners. If a biopsy was taken or a polyp was removed, you may notice a little amount of rectal bleeding for 1 to 2 days after the procedure. If you have a large amount of rectal bleeding, high or persistent fevers, or severe abdominal pain within the next 2 weeks, please go to your local emergency room and call the physician who performed your exam.Visit Notes:>> Nata Valenzuela RN MonDec 12, 2016 9:40 AM Status: SignedREVIEW OF SYSTEMS: General: The patient denies fatigue, denies weight loss, deniesweight gain, denies feeling hot, and denies feelings of cold. Eyes: The patient denies glaucoma, denies eye injury/surgery, doesnot wear glasses or contacts. Ear/Nose/Throat: The patient denies allergies, NOTES hayfever,denies ear infections, and denies bloody noses. Cardiovascular: The patient denies chest pain, denies heart disease,denies high blood pressure,denies cardiac stent, denies prior heartattack, denies irregular heart beat, denies high cholesterol, denies poorcirculation, denies heart failure, other cardiac issues, deniesclaudication, denies cold feet, denies peripheral arterial stent. Respiratory: The patient denies tuberculosis, denies pneumonia,denies frequent cough, denies pulmonary embolism, denies shortness ofbreath, and denies coughing up blood. Gastrointestinal: The patient denies difficulty swallowing, deniesacid reflux, denies ulcers, denies vomiting, denies jaundice/hepatitis,denies gallbladder problems, denies black or tarry stools, denieshemorrhoids, denies bleeding from rectum, denies diverticulitis, deniesconstipation, denies diarrhea, denies loss of stool control, and denieshernias. Kidney/Bladder: The patient denies kidney stones, denies urineinfections, and denies bloody urine. Skin: The patient denies a history of skin cancer, deniesbleeding/changing moles, and denies a history of skin rash. Neurologic: The patient denies a history of epilepsy/convulsions,denie s headaches, denies head/spinal injuries, and denies stroke/TIA. Psychiatric: The patient denies psychiatric medications, deniesdepression, and denies voices, denies substance abuse. Endocrine: The patient denies thyroid disorders, denies diabetes,and denies hormonal problems. Hematologic: The patient denies a history of bruising, deniesbleeding, and denies anemia, denies blood clots. Infections: The patient denies a history of measles and mumps,denies rheumatic fever, and denies sexually transmitted diseases. Musculoskeletal: The patient denies back pain/injury, denies backproblems, denies sciatica, denies knee/foot trouble, denies arthritis, ordenies gout.When was patient's last Mammogram screening? N/A Last Colonoscopy: valencia Valenzuela RNPrescriptions ordered this encounter Disp Refills Start End PEG 3350-ELECTROLYTES 236 GRAM-22.74* 1 Lucio* 0 12/12/2016 12/12/2016 Route: ORAL Sig: Take 4,000 mL by mouth one time only for 1 dose. Refer to printed prep instructions from your doctor.Letter TextEncounter Number: [id number] Status:Closed by JOSH ZAVALA MD on 12/12/16 [facility]P 12-12-2016 [facility] Patient:Yue Gtz Jr.MRN: Height:5' 8(1.727 m)Weight:173 lb 1 oz (78.5 kg)Outpatient Medications as of 12/20/16:gabapentin (NEURONTIN) 800 mg ORAL tablettraMADOL (ULTRAM) 50 mg ORAL tabletAdmission/Clinic Administered Medications as of 12/20/16:lactated ringers infusionProblem List:Chronic pain disorder [G89.4]Lumbosacral neuritis [M54.17]Lumbar spondylosis [M47.816]DDD (degenerative disc disease) [[id number]]Lumbar disc herniation [M51.26]Sacroiliac joint pain [M53.3]Depression [F32.9]Chronic pain due to injury [G89.21]Encounter for colonoscopy due to history of adenomatous colonic polyps [Z12.11,Z86.010]Allergies: CodeineDate Verified: 12/20/16Lab ValuesNo results within the last 30 days for the following basenames: K,HCTProgress Notes ([facility]):Nata Valenzuela RN 12/12/2016 9:41 AM SignedREVIEW OF SYSTEMS: General: The patient denies fatigue, denies weight loss, denies weightgain, denies feeling hot, and denies feelings of cold. Eyes: The patient denies glaucoma, denies eye injury/surgery, does notwear glasses or contacts. Ear/Nose/Throat: The patient denies allergies, NOTES hayfever, denies earinfections, and denies bloody noses. Cardiovascular: The patient denies chest pain, denies heart disease,denies high blood pressure,denies cardiac stent, denies prior heart attack,denies irregular heart beat, denies high cholesterol, denies poor circulation,denies heart failure, other cardiac issues, denies claudication, denies coldfeet, denies peripheral arterial stent. Respiratory: The patient denies tuberculosis, denies pneumonia, deniesfrequent cough, denies pulmonary embolism, denies shortness of breath, anddenies coughing up blood. Gastrointestinal: The patient denies difficulty swallowing, denies acidreflux, denies ulcers, denies vomiting, denies jaundice/hepatitis, deniesgallbladder problems, denies black or tarry stools, denies hemorrhoids, deniesbleeding from rectum, denies diverticulitis, denies constipation, deniesdiarrhea, denies loss of stool control, and denies hernias. Kidney/Bladder: The patient denies kidney stones, denies urine infections,and denies bloody urine. Skin: The patient denies a history of skin cancer, deniesbleeding/changing moles, and denies a history of skin rash. Neurologic: The patient denies a history of epilepsy/convulsions, deniesheadaches, denies head/spinal injuries, and denies stroke/TIA. Psychiatric: The patient denies psychiatric medications, deniesdepression, and denies voices, denies substance abuse. Endocrine: The patient denies thyroid disorders, denies diabetes, anddenies hormonal problems. Hematologic: The patient denies a history of bruising, denies bleeding,and denies anemia, denies blood clots. Infections: The patient denies a history of measles and mumps, deniesrheumatic fever, and denies sexually transmitted diseases. Musculoskeletal: The patient denies back pain/injury, denies backproblems, denies sciatica, denies knee/foot trouble, denies arthritis, or deniesgout.When was patient's last Mammogram screening? N/A Last Colonoscopy: Nicolas Zavala MD 12/12/2016 10:01 PM SignedHISTORY AND PHYSICALJesse Glenny Gtz2REFERRING PHYSICIAN: Ever Angel [facility] COMPLAINT: Consult (colonoscopy)HPI: The patient is a 56 year old male referred for endoscopy. Supriya notes nohistory of colon complaints.The patient notes no history of upper GI complaints.Supriya has undergone prior endoscopy. He had a colonoscopy by Dr. Paz [id number] - 3 polyps were removed. He recommended 5 year follow up.The patient will be donating a kidney to his son. It was recommended he havehis follow up colonoscopy prior to donationThe patient is being seen by me today at the request of Dr. Ever Angel MDfor my opinion and advice regarding screening colonoscopy.PAST MEDICAL HISTORYDiagnosis Date- Displacement of lumbar intervertebral discPAST SURGICAL HISTORYProcedure Laterality Date- CARPAL TUNNEL- COLONOSCOP W/ OR W/O [facility] SPEC 02/01/2012 Colonoscopy- EYE SURGERY PROCEDURE- REPAIR OF TENNIS ELBOW- REVISE ULNAR NERVE AT ELBOWCurrent Outpatient Prescriptions:gabapentin (NEURONTIN) 800 mg ORAL tablet Take 800 mg by mouth three timesdaily.traMADOL (ULTRAM) 50 mg ORAL tablet Take 50 mg by mouth every 6 hours as needed.DULoxetine 60 mg capsule Take 60 mg by mouth once daily.traZODONE 100 mg ORAL tablet Take 1 tablet by mouth at bedtime as needed (MR X1).quetiapine XR (SEROQUEL XR) 50 mg ORAL Tb24 Take by mouth daily at bedtime.No current facility-administered medications for this visit.ALLERGIES: CodeinePERSONAL HISTORY: Social History Marital status: Spouse name: Years of education: Number of children:Social History Main Topics Smoking status: Former Smoker Packs/day: 1.00 Years: 35.00 Smokeless status: Never Used Alcohol use: No Drug use: NoFAMILY HISTORY:FAMILY HISTORYProblem Relation Age of Onset- None Mother- None FatherREVIEW OF SYMPTOMS: The review of systems data was entered by the nurse and reviewed by Talib Notes:Nata Valenzuela RN 12/12/2016 9:41 AM SignedREVIEW OF SYSTEMS: General: The patient denies fatigue, denies weight loss, denies weightgain, denies feeling hot, and denies feelings of cold. Eyes: The patient denies glaucoma, denies eye injury/surgery, does notwear glasses or contacts. Ear/Nose/Throat: The patient denies allergies, NOTES hayfever, denies earinfections, and denies bloody noses. Cardiovascular: The patient denies chest pain, denies heart disease,denies high blood pressure,denies cardiac stent, denies prior heart attack,denies irregular heart beat, denies high cholesterol, denies poor circulation,denies heart failure, other cardiac issues, denies claudication, denies coldfeet, denies peripheral arterial stent. Respiratory: The patient denies tuberculosis, denies pneumonia, deniesfrequent cough, denies pulmonary embolism, denies shortness of breath, anddenies coughing up blood. Gastrointestinal: The patient denies difficulty swallowing, denies acidreflux, denies ulcers, denies vomiting, denies jaundice/hepatitis, deniesgallbladder problems, denies black or tarry stools, denies hemorrhoids, deniesbleeding from rectum, denies diverticulitis, denies constipation, deniesdiarrhea, denies loss of stool control, and denies hernias. Kidney/Bladder: The patient denies kidney stones, denies urine infections,and denies bloody urine. Skin: The patient denies a history of skin cancer, deniesbleeding/changing moles, and denies a history of skin rash. Neurologic: The patient denies a history of epilepsy/convulsions, deniesheadaches, denies head/spinal injuries, and denies stroke/TIA. Psychiatric: The patient denies psychiatric medications, deniesdepression, and denies voices, denies substance abuse. Endocrine: The patient denies thyroid disorders, denies diabetes, anddenies hormonal problems. Hematologic: The patient denies a history of bruising, denies bleeding,and denies anemia, denies blood clots. Infections: The patient denies a history of measles and mumps, deniesrheumatic fever, and denies sexually transmitted diseases. Musculoskeletal: The patient denies back pain/injury, denies backproblems, denies sciatica, denies knee/foot trouble, denies arthritis, or deniesgout.When was patient's last Mammogram screening? N/A Last Colonoscopy: my Valenzuela RNPHYSICAL EXAMINATION:General: The patient is 56 year old male, well nourished, well hydrated in noacute distress. The patient is oriented to time, place, and person.VITALS: Blood pressure 120/70, pulse 72, weight 78.5 kg (173 lb). Body massindex is 26.3 kg/(m2).HEENT: Normal cephalic, ataumatic, pupils are equally round, sclera areanicteric, mucous membranes are moist, oropharynx is clear. Neck has no masses,asymmetry or lymphadenopathy. Thyroid is unremarkable.Respiratory: Clear to auscultation and percussion. Normal respiratoryexcursion and pattern.Cardiac: Examination is regular rate and rhythm.Abdominal exam: Soft, nontender, with no palpable masses. Nohepatosplenomegaly. No palpable hernias.Rectal exam: exam deferredExtremities: no clubbing, cyanosis or edema. No adenopathy.Other:LABORATOR Y VALUES: As NotedRADIOLOGIC STUDIES: As NotedAssessmentIMPRESSION: need for screening colonoscopyPLAN: I plan to perform lower endoscopy. We discussed the risks and benefitsof the planned endoscopy. I have informed the patient that complications canoccur including failure to complete the endoscopy and perforation. The patienthad the opportunity to ask questions concerning the planned endoscopy. My staffhas also explained the procedure to the patient in understandable terms and hasgiven the patient printed material concerning the procedure. The patient freelyconsents to surgery.I plan to use golytely bowel preparation for endoscopyDiagnoses: (Z12.11) Screening for colon cancer (primary encounter diagnosis)A letter was sent to Dr. Ever Angel MD indicating the above finding forthis patient.Return to Clinic: The patient is instructed to follow-up with me after thetesting has been completed. Abimael Lea MD 12/12/2016 9:57 AM SignedCONSCIOUS SEDATIONHow to Prepare for Your Colonoscopy Using Golytely, Nulytely,Trilyte, or Colyte PreparationsIMPORTANT - Please Read These Instructions at Least 2 Weeks Before YourColonoscopyKey Instructions:Your bowel must be empty so that your doctor can clearly view your colon. Followall of the instructions in this handout EXACTLY as they are written.If you do NOT follow the directions for when to start drinking the bowelpreparation (see next page), your colonoscopy WILL be cancelled.? Do NOT eat any solid food the ENTIRE day before your colonoscopy.? Buy your bowel preparation at least 5 days before your colonoscopy.? Do NOT mix the solution until the day before your colonoscopy.Designated Retail Brand Ambassador on the Day of Your ExamA responsible family member or friend MUST come with you to your colonoscopy andREMSIN in the endoscopy area until you are discharged! You are NOT ALLOWED todrive, take a taxi or bus, or leave the Endoscopy Center ALONE.If you do not have a responsible port cdl a driver (family member or friend) with you totake you home, your exam can not be done with sedation and will be cancelled.MedicationsSome of the medicines you take may need to be stopped or adjusted before yourcolonoscopy.You MUST call the doctor who ordered any of the following medicines at least 2weeks before your colonoscopy.? Blood Thinners -- such as Coumadin? (warfarin), Plavix ? (clopidogrel), Ticlid? (ticlopidine hydrochloride), Agrylin ? (anagrelide), Xarelto (rivaroxaban),Pradaxa (dabigatran), and Effient (Prasugrel).? Insulin or diabetes pills. Please call the doctor that monitors your glucoselevels. Your insulin dosage may need to be adjusted due to diet restrictionsrequired with this bowel preparation. (Please bring your diabetes medicationswith you on the day of your procedure.)If you take aspirin, continue it and ALL other medications prescribed by yourdoctor. On the day of your colonoscopy, take your medications with a sip ofwater.Five (5) Days Before Your ColonoscopyDo NOT take medications that stop diarrhea-- such as Imodium?, Kaopectate?, orPepto Bismol?.Do NOT take fiber supplements--such as Metamucil?, Citrucel?, or Perdiem?.Do NOT take products that contain iron--such as multi-vitamins--(the label listswhat is in the products).Do NOT take vitamin E.Buy the prescription bowel preparation at your local pharmacy or drugstore.Three (3) Days Before Your ColonoscopyDo NOT eat high-fiber foods--such as popcorn, beans, seeds (flax, sunflower,quinoa), multigrain bread, nuts, salad/vegetables, or fresh and dried fruit.One (1) Day Before Your ColonoscopyOnly drink clear liquids the ENTIRE DAY before your colonoscopy. Do NOT eat anysolid foods. Drink at least 8 ounces of clear liquids every hour after wakingup. The clear liquids you can drink include:? water, apple or white grape juice; broth; coffee or tea (without milk orcreamer); clear carbonated beverages such as benita jovanni or lemon-timbi-sha shoshone soda;Gatorade? or other sports drinks (not red); Rigo-Aid? or other flavored drinks(not red); plain jello or other gelatins (not red); popsicles (not red)? Do NOT drink alcohol on the day before or the day of the procedure.When to Mix and Drink Your Bowel PreparationFollow the instructions on the label. After mixing, place the solution in therefrigerator for a couple of hours before drinking. You may add the flavorpacket that came with the bowel preparation. DO NOT add ice, sugar or anyflavorings to the solution.Single Dosing, Evening Before ColonoscopyStart drinking the bowel preparation at 6 PM the evening before yourcolonoscopy. Drink an 8 oz glass of bowel preparation every 10 minutes. You mustfinish drinking the solution by 9 PM.You may continue to drink clear liquids up to 2 hours before your exam. If youtake aspirin, take it and ALL other prescribed medicines with a sip of water onthe day of your colonoscopy.Contact InformationIf you are unable to keep your appointment or have any questions about theinstructions, please call the facility where the procedure is being performed.Call between the hours of 8:00 AM and 5:00 PM. If you are calling after 5:00 PM,please call Nurse space systems operations craftsman at [phone].COLONOSCOPY PROCEDURE OVERVIEWPlease read prior to the procedureWhat is a Colonoscopy?A colonoscopy is an outpatient procedure in which the inside of the largeintestine (colon and rectum) is examined. A colonoscopy is commonly used toevaluate gastrointestinal symptoms, such as rectal and intestinal bleeding,abdominal pain, or changes in bowel habits. Colonoscopies are also performed inindividuals without symptoms to check for colorectal polyps or cancer. Ascreening colonoscopy is recommended for anyone 50 years of age and older, andfor anyone with parents, siblings or children with a history of colorectalcancer or polyps.What happens before a colonoscopy?To have a successful colonoscopy, your bowel must be empty so that yourphysician can clearly view the colon. To do this, it is very important to readand follow all of the instructions given to you at least 2 weeks BEFORE yourexam.If your bowel is not empty, your colonoscopy will not be successful and may haveto be repeated.If you feel nauseated or vomit while taking the bowel preparation, wait 30minutes before drinking more fluid and start with small sips of solution. Someactivity (such as walking) or a few soda crackers may help decrease the nauseayou are feeling. If the nausea persists, please contact nurse reporting consultant [phone].You may experience skin irritation around the anus due to the passage of liquidstools. To prevent and treat skin irritation, you should: Apply Vaseline orDesitin ointment to the skin around the anus before drinking the bowelpreparation medications. These products can be purchased at any drug store. Wipethe skin after each bowel movement with disposable wet wipes instead of toiletpaper. These are found in the toilet paper area of the store. Sit in a bathtubfilled with warm water for 10 to 15 minutes after you finish passing a stool;after soaking, blot the skin dry with a soft cloth, apply Vaseline or Desitinointment to the anal area, and place a cotton ball just outside your anus toabsorb leaking fluid.What happens during a colonoscopy?During a colonoscopy, an experienced physician uses a colonoscope (a long,flexible instrument about 1/2 inch in diameter) to view the lining of the colon.The colonoscope is inserted into the rectum and advanced through the largeintestine. If necessary during a colonoscopy, small amounts of tissue can beremoved for analysis (a biopsy) and polyps can be identified and entirelyremoved. In many cases, a colonoscopy allows accurate diagnosis and treatment ofcolorectal problems without the need for a major operation.You are asked to wear a hospital gown and an IV will be started.You are given a pain reliever and a sedative intravenously (in your vein). Youwill feel relaxed and somewhat drowsy. You will lie on your left side, with yourknees drawn up towards your chest. A small amount of air is used to expand thecolon so the physician can see the colon akins. You may feel mild crampingduring the procedure. Cramping can be reduced by taking slow, deep breaths.The colonoscope is slowly withdrawn while the lining of your bowel is carefullyexamined.The procedure lasts from 30 minutes to 1 hour.What happens after a colonoscopy?You will stay in a recovery room for observation until you are ready fordischarge.You may feel some cramping or a sensation of having gas, but this quicklypasses.If sedation has been given, a responsible port cdl a driver (a family member or friend)must drive you home.Avoid alcohol, driving, and operating machinery for 24 hours following theprocedure.Unless otherwise instructed, you may immediately return to your normal diet. Werecommend you wait until the day after your procedure to resume normalactivities.If polyps were removed or a biopsy was taken, the physician performing yourcolonoscopy will tell you when it is safe to resume taking your blood thinners.If a biopsy was taken or a polyp was removed, you may notice a little amount ofrectal bleeding for 1 to 2 days after the procedure. If you have a large amountof rectal bleeding, high or persistent fevers, or severe abdominal pain withinthe next 2 weeks, please go to your local emergency room and call the physicianwho performed your exam. Normal [facility] PROGRESSon 12-12-2016 PROGRESS HNO ID: [id number] thor: Josh Pearson: (none)Author Type: PhysicianType: Progress NotesFiled: 12/12/2016 10:01 PMNote Text:HISTORY AND PHYSICALSupriya Murrieta 2REFERRING PHYSICIAN: Ever Angel MDCWIFOSTER COMPLAINT: Consult (colonoscopy)HPI: The patient is a 56 year old male referred for endoscopy. Sebastienalainates no history of colon complaints.The patient notes no history of upper GI complaints.Supriya has undergone prior endoscopy. He had a colonoscopy by Dr. Leblanc 2011 - polyps were removed. He recommended 5 year follow up.The patient will be donating a kidney to his son. It was recommended hehave his follow up colonoscopy prior to donationThe patient is being seen by me today at the request of Dr. Ever Collazo MD for my opinion and advice regarding screening colonoscopy.PAST MEDICAL HISTORYDiagnosis Date- Displacement of lumbar intervertebral discPAST SURGICAL HISTORYProcedure Laterality Date- CARPAL TUNNEL- COLONOSCOP W/ OR W/O [facility] SPEC 02/01/2012 Colonoscopy- EYE SURGERY PROCEDURE- REPAIR OF TENNIS ELBOW- REVISE ULNAR NERVE AT ELBOWCurrent Outpatient Prescriptions:gabapentin (NEURONTIN) 800 mg ORAL tablet Take 800 mg by mouth three timesdaily.traMADOL (ULTRAM) 50 mg ORAL tablet Take 50 mg by mouth every 6 hours asneeded.DULoxetine 60 mg capsule Take 60 mg by mouth once daily.traZODONE 100 mg ORAL tablet Take 1 tablet by mouth at bedtime as needed(MR X 1).quetiapine XR (SEROQUEL XR) 50 mg ORAL Tb24 Take by mouth daily atbedtime.No current facility-administered medications for this visit.ALLERGIES: CodeinePERSONAL HISTORY: Social History Marital status: Spouse name: Years of education: Number of children:Social History Main Topics Smoking status: Former Smoker Packs/day: 1.00 Years: 35.00 Smokeless status: Never Used Alcohol use: No Drug use: NoFAMILY HISTORY:FAMILY HISTORYProblem Relation Age of Onset- None Mother- None FatherREVIEW OF SYMPTOMS: The review of systems data was entered by the nurse and reviewed by Talib Notes:Nata Valenzuela RN 12/12/2016 9:41 AM SignedREVIEW OF SYSTEMS: General: The patient denies fatigue, denies weight loss, deniesweight gain, denies feeling hot, and denies feelings of cold. Eyes: The patient denies glaucoma, denies eye injury/surgery, doesnot wear glasses or contacts. Ear/Nose/Throat: The patient denies allergies, NOTES hayfever,denies ear infections, and denies bloody noses. Cardiovascular: The patient denies chest pain, denies heart disease,denies high blood pressure,denies cardiac stent, denies prior heartattack, denies irregular heart beat, denies high cholesterol, denies poorcirculation, denies heart failure, other cardiac issues, deniesclaudication, denies cold feet, denies peripheral arterial stent. Respiratory: The patient denies tuberculosis, denies pneumonia,denies frequent cough, denies pulmonary embolism, denies shortness ofbreath, and denies coughing up blood. Gastrointestinal: The patient denies difficulty swallowing, deniesacid reflux, denies ulcers, denies vomiting, denies jaundice/hepatitis,denies gallbladder problems, denies black or tarry stools, denieshemorrhoids, denies bleeding from rectum, denies diverticulitis, deniesconstipation, denies diarrhea, denies loss of stool control, and denieshernias. Kidney/Bladder: The patient denies kidney stones, denies urineinfections, and denies bloody urine. Skin: The patient denies a history of skin cancer, deniesbleeding/changing moles, and denies a history of skin rash. Neurologic: The patient denies a history of epilepsy/convulsions,denie s headaches, denies head/spinal injuries, and denies stroke/TIA. Psychiatric: The patient denies psychiatric medications, deniesdepression, and denies voices, denies substance abuse. Endocrine: The patient denies thyroid disorders, denies diabetes,and denies hormonal problems. Hematologic: The patient denies a history of bruising, deniesbleeding, and denies anemia, denies blood clots. Infections: The patient denies a history of measles and mumps,denies rheumatic fever, and denies sexually transmitted diseases. Musculoskeletal: The patient denies back pain/injury, denies backproblems, denies sciatica, denies knee/foot trouble, denies arthritis, ordenies gout.When was patient's last Mammogram screening? N/A Last Colonoscopy: my [place] RNPHYSICAL EXAMINATION:General: The patient is 56 year old male, well nourished, well hydratedin no acute distress. The patient is oriented to time, place, and person.VITALS: Blood pressure 120/70, pulse 72, weight 78.5 kg (173 lb). Bodymass index is 26.3 kg/(m2).HEENT: Normal cephalic, ataumatic, pupils are equally round, sclera areanicteric, mucous membranes are moist, oropharynx is clear. Neck has nomasses, asymmetry or lymphadenopathy. Thyroid is unremarkable.Respiratory: Clear to auscultation and percussion. Normal respiratoryexcursion and pattern.Cardiac: Examination is regular rate and rhythm.Abdominal exam: Soft, nontender, with no palpable masses. Nohepatosplenomegaly. No palpable hernias.Rectal exam: exam deferredExtremities: no clubbing, cyanosis or edema. No adenopathy.Other:LABORATOR Y VALUES: As NotedRADIOLOGIC STUDIES: As NotedAssessmentIMPRESSION: need for screening colonoscopyPLAN: I plan to perform lower endoscopy. We discussed the risks andbenefits of the planned endoscopy. I have informed the patient thatcomplications can occur including failure to complete the endoscopy andperforation. The patient had the opportunity to ask questions concerningthe planned endoscopy. My staff has also explained the procedure to thepatient in understandable terms and has given the patient printed materialconcerning the procedure. The patient freely consents to surgery.I plan to use golytely bowel preparation for endoscopyDiagnoses: (Z12.11) Screening for colon cancer (primary encounterdiagnosis)A letter was sent to Dr. Ever Angel MD indicating the above findingfor this patient.Return to Clinic: The patient is instructed to follow-up with me after thetesting has been completed. Josh Zavala MD [facility] Vital Signs Date Time Vital Sign Value Performing Clinician Facility 05-19-2022 03:57-0500 Diastolic blood pressure 72 mm[Hg] No Pcp Required [facility] 05-19-2022 03:57-0500 Heart rate 76 /min No Pcp Required [facility] 05-19-2022 03:57-0500 Respiratory rate 16 /min No Pcp Required [facility] 05-19-2022 03:57-0500 SaO2% (BldA) [Mass fraction] 96 % No Pcp Required [facility] 05-19-2022 03:57-0500 Systolic blood pressure 127 mm[Hg] No Pcp Required [facility] 06-25-2020 10:59-0400 BMI (Body Mass Index) 28.49 kg/m2 Chloé Yerneni [facility] Work Phone: 06-25-2020 10:59-0400 Body Temperature 97.7 [degF] Chloé Yerneni [facility] Work Phone: Comment on above: Method: Temporal 06-25-2020 10:59-0400 Body weight 82.51 kg Chloé Yerneni [facility] Work Phone: 06-25-2020 10:59-0400 BP Diastolic 79 mm[Hg] Chloé Yerneni [facility] Work Phone: 06-25-2020 10:59-0400 BP Systolic 138 mm[Hg] Chloé Yerneni [facility] Work Phone: 06-25-2020 10:59-0400 BSA (Body Surface Area) 1.94 m2 Chloé Yerneni [facility] Work Phone: 06-25-2020 10:59-0400 Height 170.18 cm Chloé Yerneni [facility] Work Phone: 06-25-2020 10:59-0400 Pulse (Heart Rate) 93 /min Chloé Yerneni [facility] Work Phone: 06-25-2020 10:59-0400 Pulse Oximetry 98 % Chloé Yerneni [facility] Work Phone: Comment on above: Source: RA Encounters Encounter Date Encounter Type Care Provider Facility Start: 01-28-2025 End: 01-28-2025 ambulatory [facility] Start: 11-02-2022 End: 11-02-2022 ambulatory [facility] Work Phone: Start: 11-02-2022 End: 11-02-2022 Patient encounter procedure [facility]-Stas Dominguez [facility] Start: 05-18-2022 End: 05-19-2022 Emergency department patient visit Krys Khalil [facility] Adult ED Trauma 02B Start: 11-09-2021 End: 11-09-2021 Patient encounter procedure [facility]-Cat Scan, [facility] Start: 10-25-2021 End: 10-25-2021 Patient encounter procedure [facility]-Dennis Dominguez Start: 06-25-2020 Patient encounter procedure Chloé Cope [facility] Work Phone: Start: 07-13-2018 Patient encounter procedure Chloé Cope [facility] Work Phone: Start: 12-20-2016 End: 12-20-2016 Ambulatory JOSH LOUISTMAN [facility] Start: 12-12-2016 End: 12-14-2016 Ambulatory JOSH Renee LUCAS [facility] Procedures Date Procedure Procedure Detail Performing Clinician Start: 05-18-2022 End: 05-18-2022 EKG impression Boubacar Giuliana Start: 11-09-2021 CT of chest Plan of Treatment Date Care Activity Detail Author Start: 03-18-2025 ambulatory Ambulatory Facility:[facility] Payers Date Payer Category Payer Self-pay [id number] 2024 Medicare [id number] 1960 Unknown [id number] Medicare [id number] 2b21 Unknown ANTHEM\ANTHEM MEDICARE ADV Unknown [id number] Unknown [id number] Social History Date Type Detail Facility Assertion Tobacco smoking consumption unknown (finding) [facility] Work Phone: Start: 05-11-2017 End: 11-09-2021 Tobacco smoking status NHIS Unknown if ever smoked [facility] Start: 1960 Sex Assigned At Male [facility] Functional Status Date Assessment Result Facility NEGATED: Highlighted row Functional performance Functional status health issues are not documented Disease ZR[facility]Mqiwhrbxks-Mnll[facility] r Work Phone: Mental Status Date Assessment Result Facility NEGATED: Highlighted row Cognitive function [Interpretation] Cognitive status health issues are not documented Disease LO-Tpbcadhiej-Qhxip r Work Phone: Evaluation note Note Date & Type Note Facility Evaluation note No assessment information availa [facility] Work Phone: Summary Purpose Family History No Family History Records Found natural son Name Dates Details Family history of HSP (Henoc h Schonlein purpura)(287.0, D69.0) Status:Active Advance Directives No Advanced Directives Records FoundNo Advanced Directives Records FoundNo Advanced Directives Records FoundNo Advanced Directives Records Found Chief Complaint and Reason for Visit Chief Complaint SMOKER Additional Source Comments (unrecognized sect ion and content) No Status Records FoundNo Status Records FoundNo Status Records FoundNo Status Records Found INFORMATION SOURCE (unrecogn ized section and content) DATE CREATED AUTHOR 09/27/2017 [facility] DATE CREATED AUTHOR AUTHOR'S ORGANIZ ATION 06/28/2020 [facility] DATE CREATED AUTHOR AUTHOR'S ORGANIZ ATION 05/21/2022 [facility] DATE CREATED AUTHOR AUTHOR'S ORGANIZ ATION 01/29/[address] [facility] Goals (unrecognized section and content) Goals may be documented in a n alternate sectionGoals may be documented in an alternate sectionGoals may be documented in an alternate section <item> Privacy Markings (unrecogniz ed section and content) Section Author: Rosita Wells PROHIBITION ON REDISCLOSURE OF CONFIDENTIAL INFORMATION This notice accompanies a disclosure of information concerning a client made to you with the consent of such client. Care Teams (unrecognized sec tion and content) Team Status: Active Member Role Status Dates Dr. Ever Angel MD Family Provider Active ABIMAEL Leon Primary Care Provider Active Team Status: Inactive Member Role Status Dates ABIMAEL Leon Primary Care Provide r, Attending Provider, Referring Provider Active FOR RECORDS PERTAINING TO PATIENTS WHO ARE OR HAVE BEEN ENROLLED IN A CHEMICAL DEPENDENCY/SUBSTANCEABUSE PROGRAM, SOME INFORMATION MAY BE OMITTED. This clinical summary was aggregated from multiple sources. Caution should be exercised in using it in the provision of clinical care. This summary normalizes information from multiple sources, and as a consequence, information in this document may materially change the coding, format and clinical context of patient data. In addition, data may be omitted in some cases. CLINICAL DECISIONS SHOULD BE BASED ON THE PRIMARY CLINICAL RECORDS. [facility]. provides no warranty or guarantee of the accuracy or completeness of information in this document.
--- NOTE | 2025-03-26 17:48 | ED.VIS.DENTA ---
HPI History of Present Illness Chief Complaint: Dental Narrative Narrative: Chief complaint and HPI: 64-year-old male with past medical history of donated kidney, HLD, depression presents for evaluation of right upper dental tooth pain and swelling. Patient states yesterday evening around 11 PM he started developing right upper tooth pain. States he has a known chip in this tooth. States he then developed swelling of the right cheek. He had a telehealth visit today in which he was prescribed Augmentin. He has taken 1 dose. It was written for twice a day x 7 days. Patient states he presents for evaluation given the swelling. He states he did have 1 episode of burning in his chest earlier but this resolved. Currently not having chest pain. Denies any fever, chills, shortness of breath, URI symptoms, difficulty speaking, difficulty swallowing, headache, eye pain, ear pain, neck pain. Review of systems: See HPI Medications: As listed on the chart Allergies: As listed on the chart PFSH: Per chart Vital signs: As listed on the chart. Reviewed. Physical exam: Gen: A&O x3, NAD Head: Normocephalic, atraumatic Eyes: No sclera icterus, conjunctiva clear, PERRL, EOMI without pain, no periorbital edema ENT: TMs clear BL, moist mucous membranes, posterior oropharynx unremarkable, uvula midline, tonsils not enlarged, no tongue enlargement, no submandibular or sublingual swelling, tolerating secretions, normal phonation, patient has tenderness to palpation of tooth #15-there is an obvious fracture, patient has mild gingival swelling in this area but no dental abscess visualized, patient does have swelling of the right cheek-no crepitus or fluctuance, no sinus tenderness, nares clear bilaterally Neck: Trachea midline, Full ROM, No meningismus, no lymphadenopathy CV: RRR, no murmurs, no peripheral edema Resp: Lungs CTA BL, no w/r/c Skin: Warm, dry, no rash Psych: Cooperative, appropriate mood and affect [facility] Medical History Tennis elbow BPH (benign prostatic hyperplasia) Chronic low back pain Hyperlipidemia Depression History of colon polyps History of tobacco use Encounter for screening for malignant neoplasm of lung Home Medications ?Medication ?Instructions ?Recorded ?Last Taken ?Type ascorbic acid 100 mg-zinc sulfate tab PO 01/09/24 Unknown History 200 mg tablet cholecalciferol (vitamin D3) 50 50 mcg PO QDAY 01/09/24 Unknown History mcg (2,000 unit) capsule red yeast rice 600 mg tablet 600 mg PO QDAY 01/09/24 Unknown History amoxicillin 875 mg-potassium 1 tab PO BID 03/26/25 Unknown History clavulanate 125 mg tablet Allergy/AdvReac Type Severity Reaction Status Date / Time Influenza Virus Vaccines Allergy Other Verified 03/26/25 17:00 (flu shot) [id number] Reductase Allergy Other Verified 03/26/25 17:00 Inhibitor Surgical History H/O kidney donation Social History Smoking Status: Former smoker alcohol intake: never EXAM Physical Exam Const Vital Signs: 03/26/25 16:59 03/26/25 17:03 Temperature 98.9 F 99.8 F H Temperature Source Oral Oral Pulse Rate 85 82 Respiratory Rate 16 18 Blood Pressure 144/104 H 150/90 H Blood Pressure Mean 117 110 Pulse Ox 99 98 Oxygen Delivery Method Room Air Room Air MDM MDM MDM Narrative Medical decision making narrative: 64-year-old male with past medical history of donated kidney, HLD, depression presents for evaluation of right upper dental tooth pain and swelling. Patient states yesterday evening around 11 PM he started developing right upper tooth pain. States he has a known chip in this tooth. States he then developed swelling of the right cheek. He had a telehealth visit today in which he was prescribed Augmentin. He has taken 1 dose. It was written for twice a day x 7 days. Patient states he presents for evaluation given the swelling. Denies any fever, chills, shortness of breath, URI symptoms, difficulty speaking, difficulty swallowing, headache, eye pain, ear pain, neck pain. On presentation, patient in no acute distress. See physical exam findings with the dental pain and swelling. Patient's symptoms are likely secondary to dental infection. There is no dental abscess for incision and drainage. Patient has only had 1 dose of his antibiotic. He has been taking Tylenol. Given his stable vital signs, I do not think any laboratory workup is needed. The swelling of his cheek can be seen with dental infections however I did offer CT of the face to assess for deeper soft tissue infection however he declined. I do think this is appropriate. I did recommend ice for swelling. He cannot take ibuprofen given that he donated a kidney. Recommended continuing the Tylenol. I did offer narcotic for pain but he declined. He was educated he needs to follow-up with his dentist and I offered dental clinics as well. He was told to return back to the ED if swelling does not improve or if symptoms worsen or change. He confirmed understanding of the plan. Patient stable to discharge home. Impression: 1. Dental infection 2. Dental pain Discharge Plan Triage Chief Complaint: Dental ED Provider: Chace Kincaid Dx/Rx/DC Orders Clinical Impression: Dental infection Instructions: ED Dental Pain Prescriptions: No Action red yeast rice 600 mg tablet 600 mg PO QDAY Rx Instructions: give with meal/snack ascorbic acid-zinc sulfate 100-200 mg tablet PO cholecalciferol (vitamin D3) 50 mcg (2,000 unit) capsule 50 mcg PO QDAY amoxicillin-pot clavulanate 875-125 mg tablet 1 tab PO BID Primary Care Provider: Chaparrita Tanner Referrals: Follow-up with your dentist or one of the dental clinics [Other] - 3-5 Days Chaparrita Tanner, [facility]OUNT[facility] [Primary Care Provider, Family Practice] - 3-5 Days Activity Restrictions/Additional Instructions: Continue to take your Tylenol and Augmentin. Ice as needed for swelling. Return back to ED if symptoms change or worsen. Follow-up with the dentist. Print Language: Kinyarwanda Disposition Disposition: Home, Self Care Discharge Date/Time: 03/26/25 17:46
== END 2025-03-26 17:46 | disposition home or self-care (01) ==
PROVIDERS: Emergency Provider Surgery; PCP Nurse Practitioner Family; Visit Provider Surgery
DX: K04.7 Periapical abscess without sinus (principal); Z87.891 Personal history of nicotine dependence
CPT/HCPCS: 99282